=== PATIENT | female | born 1955 | race Caucasian/White ===

== ENCOUNTER 2017-02-09 12:13 | Emergency (ER) | payer OTHER ==
[2017-02-09 12:31] VITALS: RESP 18
[2017-02-09] MEDS ORDERED: SODIUM CHLORIDE 0.9% 500 ML IV STA (13:04)
--- NOTE | 2017-02-09 13:49 | CT ---
EXAMINATION TYPE: CT brain wo con DATE OF EXAM: 02/09/2017 1:44 PM COMPARISON: 11/06/2016 HISTORY: seizure CT DLP: 995.[address] of the brain was performed. The ventricles, basal cisterns and sulci overlying the cerebral convexities demonstrate mild enlargem ent. Remote lacunar infarcts identified. There is no evidence for intracranial hemorrhage or sulcal effacement. There is decreased attenuation about the periventricular white matter and deep white matter of both c erebral hemispheres, compatible with chronic small vessel ischemia. Differential diagnosis does inclu de demyelination. No mass effects are seen.No midline shift. Osseous calvarium is intact. If symptoms persist consider MRI. IMPRESSION: 1. Age related atrophic and chronic small vessel ischemic change without acute intracranial process s een at this time.
--- NOTE | 2017-02-09 13:54 | XR ---
EXAMINATION TYPE: XR chest 2V DATE OF EXAM: 02/09/2017 1:48 PM COMPARISON: 11/09/2016 HISTORY: Shortness of breath TECHNIQUE: Frontal and lateral views of the chest are obtained. FINDINGS: Scattered senescent parenchymal changes noted. Hyperinflation compatible with COPD. No evidence for infiltrate. No evidence for atelectasis. Heart size is stable. Mediastinal structures are stable and grossly unremarkable. No evidence for hilar prominence. Degenerative changes dorsal spine. IMPRESSION: 1. No evidence for acute pulmonary disease.
[2017-02-09 14:39] LABS: Basophils % (A) 1 %; CH 30.1; CHCM 33.5; Eosinophils # (A) 0.1 k/uL (0-0.7); Eosinophils % (A) 1 %; HCT 33.9 % (34.0-46.0); HDW 2.34; HGB 11.2 gm/dL (11.4-16.0); Luc # (Auto) 0.16; Luc % (Auto) 3; Lymphocytes # (A) 1.3 k/uL (1.0-4.8); Lymphocytes % (A) 27 %; MCH 29.9 pg (25.0-35.0); MCHC 33.1 g/dL (31.0-37.0); MCV 90.2 fL (80.0-100.0); Mean Platelet Volume 7.1; Monocytes # (A) 0.3 k/uL (0-1.0); Monocytes % (A) 7 %; Neutrophils % (A) 61 %; RBC 3.76 m/uL (3.80-5.40); RDW 12.8 % (11.5-15.5); WBC 4.8 k/uL (3.8-10.6); WBC (Perox) 5.24
[2017-02-09 14:50] LABS: ALT 21 U/L (9-52); AST 15 U/L (14-36); Alkaline Phosphatase 113 U/L (38-126); Anion Gap 10 mmol/L; Blood Urea Nitrogen 9 mg/dL (7-17); Calcium 8.2 mg/dL (8.4-10.2); Carbon Dioxide 23 mmol/L (22-30); Chloride 105 mmol/L (98-107); Glucose 96 mg/dL (74-99); Non-African American GFR(MDRD) >60 (>60 ml/min/1.73 sqM); Potassium 3.6 mmol/L (3.5-5.1); Sodium 138 mmol/L (137-145); Total Bilirubin 0.3 mg/dL (0.2-1.3)
--- NOTE | 2017-02-09 16:07 | ED ---
Syncope HPI - General Chief Complaint: Dizziness Stated Complaint: Weakness Time Seen by Provider: 02/09/17 12:56 Source: patient Mode of arrival: EMS Limitations: physical limitation - History of Present Illness Initial Comments: (Message on her son's cell phone this morning, message wasn't quite clear she didn't speak very clear on the phone and then she was brought to the hospital and at that point she was quite unresponsive. Her son told me she has a history of nonepileptic seizures and she also has a history of bipolar disorder as well as borderline personality and this is not the first time she had the similar episodes. Review of system is not available patient is not responding to the verbal queries - Related Data Home Medications Medication Instructions Recorded Confirmed Cyanocobalamin [Vitamin B-12] 1,000 mcg PO DAILY 11/20/14 11/09/16 DULoxetine HCL [Cymbalta] 60 mg PO BID 11/20/14 11/09/16 Estrogens, Conjugated [Premarin] 0.3 mg PO MOFR 11/20/14 11/09/16 Fluticasone Propionate [Flonase] 2 spray EA NOSTRIL BID PRN 11/20/14 11/09/16 LORazepam [Ativan] 1 mg PO TID PRN 11/20/14 11/09/16 Levothyroxine Sodium [Synthroid] 100 mcg PO QAM 11/20/14 11/09/16 Loratadine-Pseudoeph 10-240 mg 1 tab PO DAILY PRN 11/20/14 11/09/16 [Claritin-D 24 Hour] Omeprazole [PriLOSEC] 20 mg PO AC-TID 11/20/14 11/09/16 SUMAtriptan SUCCINATE [Imitrex] 100 mg PO BID PRN 11/20/14 11/09/16 Trimethobenzamide [Tigan] 300 mg PO TID PRN 11/20/14 11/09/16 carBAMazepine [TEGretol] 200 mg PO BID 11/20/14 11/09/16 traZODone HCL [Desyrel] 200 mg PO HS 11/20/14 11/09/16 Calcium Carbonate/Vitamin D3 1 tab PO BID 04/09/16 11/09/16 [Calcium 600-Vit D3 400 Tablet] Cholecalciferol [Vitamin D3] 2,000 unit PO DAILY 04/09/16 11/09/16 Lidocaine Viscous [Xylocaine 10 ml PO DAILY PRN 04/09/16 11/09/16 Viscous 2%] Zonisamide [Zonegran] 400 mg PO HS 07/16/16 11/09/16 Previous Rx's Medication Instructions Recorded HYDROcodone/APAP 5-325MG [[place] 1 - 2 each PO Q4-6H PRN #90 tab 11/13/16 5-325] Sennosides-Docusate Sodium 1 tab PO BID #60 tablet 11/13/16 [Senokot-S] Warfarin [Coumadin] 2.5 mg PO DAILY #30 tab 11/13/16 Allergies Allergy/AdvReac Type Severity Reaction Status Date / Time barium sulfate Allergy Rash/Hives Verified 02/09/17 12:22 ibuprofen [From Motrin] Allergy Unknown Verified 02/09/17 12:22 sulfamethoxazole Allergy Unknown Verified 02/09/17 12:22 [From Bactrim] trimethoprim [From Bactrim] Allergy Unknown Verified 02/09/17 12:22 atropine sulfate AdvReac STOMACH Verified 02/09/17 12:22 [From ] PAIN cyclobenzaprine HCl AdvReac NIGHTMARES Verified 02/09/17 12:22 [From Flexeril] dicyclomine HCl [From Bentyl] AdvReac STOMACH Verified 02/09/17 12:22 PAIN hyoscyamine sulfate AdvReac STOMACH Verified 02/09/17 12:22 [From ] PAIN niacin AdvReac HOT/FLUSHIN Verified 02/09/17 12:22 G NSAIDS (Non-Steroidal AdvReac stomach Verified 02/09/17 12:22 Anti-Inflamma pain phenobarbital [From ] AdvReac STOMACH Verified 11/09/16 14:56 PAIN scopolamine hydrobromide AdvReac STOMACH Verified 11/09/16 14:56 [From ] PAIN Bspujwh-Soi-Jfv Reductase AdvReac MUSCLE Verified 11/09/16 14:56 Inhibitor WEAKNESS Review of Systems ROS Statement: Those systems with pertinent positive or pertinent negative responses have been documented in the HPI. ROS Other: All systems not noted in ROS Statement are negative. Past Medical History Past Medical History: Fibromyalgia, GERD/Reflux, Seizure Disorder, Thyroid Disorder Additional Past Medical History / Comment(s): SEE DR GARCIA'S H&P,pernicious anemia, chronic pain, LAST SEIZURE-NOV 2014, MIGRAINES,acute bronchial spasms, IBS,inflammatory & toxic neuropathy,rt upper quad pain,meralgia parasthetica,TMJ History of Any Multi-Drug Resistant Organisms: None Reported Past Surgical History: Adenoidectomy, Appendectomy, Section, Cholecystectomy, Hysterectomy, Tonsillectomy, Tubal Ligation Additional Past Surgical History / Comment(s): jaw(HAS METAL IN IT) Past Anesthesia/Blood Transfusion Reactions: Motion Sickness Additional Past Anesthesia/Blood Transfusion Reaction / Comment(s): claustrophobic Past Psychological History: Anxiety, Bipolar, Depression, PTSD Additional Psychological History / Comment(s): personality disorder. STARTED SMOKING 2005 AFTER A DIVORCE,SMOKES NO MORE THAN 1/2 PPD. pt stated she recently had fallen hit head/rt arm had xray of arm at [facility] (was ok). pt stated ever since fall has had some slightconfusion. Smoking Status: Former smoker Past Alcohol Use History: None Reported Past Drug Use History: None Reported Additional Drug Use History / Comment(s): uses marijuana weekly-has medical marijuana card - Past Family History Father Family Medical History: Congestive Heart Failure (CHF), COPD, Hyperlipidemia, Hypertension Additional Family Medical History / Comment(s): at age 63 Mother Family Medical History: Renal Disease Additional Family Medical History / Comment(s): AT AGE 88- RENAL FAILURE General Exam - General Exam Comments Initial Comments: General: The patient i was sleeping and not responding to verbal inquiries l I when I went to reassess her she was awake alert GCS was 15 there were no complaints at all. Skin: Skin is warm and dry and no rashes or lesions are noted. Eye: Pupils are equal, round and reactive to light, extra-ocular movements are intact; there is normal conjunctiva bilaterally. Ears, nose, mouth and throat: There are moist mucous membranes and no oral lesions. Neck: The neck is supple, there is no tenderness or JVD. Cardiovascular: There is a regular rate and rhythm. No murmur, rub or gallop is appreciated. Respiratory: To auscultation bilateral, no wheezing no rhonchi no distress respiratory christensen noticed Gastrointestinal: Soft, non-distended, non-tender abdomen without masses or organomegaly noted. There is no rebound or guarding present. Bowel sounds are unremarkable. Back: There is no tenderness to palpation in the midline. There is no obvious deformity. Musculoskeletal: Normal ROM, no tenderness, There is no pedal edema. There is no calf tenderness or swelling. No cords were appreciated. Neurological: CN II-XII intact, Cranial nerves III through XII are intact. There are no obvious motor or sensory deficits. Coordination appears grossly intact. Speech is normal. Psychiatric: Cooperative, appropriate mood & affect, normal judgment. Limitations: physical limitation Course Vital Signs 02/09/17 02/09/17 02/09/17 12:20 14:20 15:53 Temperature 97.5 F L Pulse Rate 72 74 78 Respiratory 18 18 18 Rate Blood Pressure 133/84 147/78 149/69 O2 Sat by Pulse 95 99 97 Oximetry - Reevaluation(s) Reevaluation #1: 02/09/17 16:55 Reason was reassessed at 1650 again had a long conversation with the patient and the family she has been elevated well with the nurse seen her she wants to go home and family agrees with the. There was advised to come back if symptoms get worse EKG Findings - EKG Comments: EKG Findings:: KG is normal sinus rhythm ventricular rate is 70 CO interval is 202 QRS duration is 94 QT/QTc is 396/427, review of this EKG does not reveal any ST elevation or ST depression at all Medical Decision Making - Lab Data Result diagrams: 02/09/17 14:21 02/09/17 14:21 Lab Results 02/09/17 02/09/17 02/09/17 Range/Units 13:30 14:21 14:21 WBC 4.8 (3.8-10.6) k/uL RBC 3.76 L (3.80-5.40) m/uL Hgb 11.2 L (11.4-16.0) gm/dL Hct 33.9 L (34.0-46.0) % MCV 90.2 (80.0-100.0) fL MCH 29.9 (25.0-35.0) pg MCHC 33.1 (31.0-37.0) g/dL RDW 12.8 (11.5-15.5) % Plt Count 330 (150-450) k/uL Neutrophils % 61 % Lymphocytes % 27 % Monocytes % 7 % Eosinophils % 1 % Basophils % 1 % Neutrophils # 3.0 (1.3-7.7) k/uL Lymphocytes # 1.3 (1.0-4.8) k/uL Monocytes # 0.3 (0-1.0) k/uL Eosinophils # 0.1 (0-0.7) k/uL Basophils # 0.0 (0-0.2) k/uL Sodium (137-145) mmol/L Potassium (3.5-5.1) mmol/L Chloride (98-107) mmol/L Carbon Dioxide (22-30) mmol/L Anion Gap mmol/L BUN (7-17) mg/dL Creatinine (0.52-1.04) mg/dL Est GFR (MDRD) Af Amer (>60 ml/min/1.73 sqM) Est GFR (MDRD) Non-Af (>60 ml/min/1.73 sqM) Glucose (74-99) mg/dL Plasma Lactic Acid [place] 1.1 (0.7-2.0) mmol/L Calcium (8.4-10.2) mg/dL Total Bilirubin (0.2-1.3) mg/dL AST (14-36) U/L ALT (9-52) U/L Alkaline Phosphatase (38-126) U/L Troponin I <0.012 (0.000-0.034) ng/mL Total Protein (6.3-8.2) g/dL Albumin (3.5-5.0) g/dL Urine Opiates Screen (NotDetected) Ur Oxycodone Screen (NotDetected) Urine Methadone Screen (NotDetected) Ur Propoxyphene Screen (NotDetected) Ur Barbiturates Screen (NotDetected) U Tricyclic Antidepress (NotDetected) Ur Phencyclidine Scrn (NotDetected) Ur Amphetamines Screen (NotDetected) U Methamphetamines Scrn (NotDetected) U Benzodiazepines Scrn (NotDetected) Urine Cocaine Screen (NotDetected) U Marijuana (THC) Screen (NotDetected) 02/09/17 02/09/17 Range/Units 14:21 15:00 WBC (3.8-10.6) k/uL RBC (3.80-5.40) m/uL Hgb (11.4-16.0) gm/dL Hct (34.0-46.0) % MCV (80.0-100.0) fL MCH (25.0-35.0) pg MCHC (31.0-37.0) g/dL RDW (11.5-15.5) % Plt Count (150-450) k/uL Neutrophils % % Lymphocytes % % Monocytes % % Eosinophils % % Basophils % % Neutrophils # (1.3-7.7) k/uL Lymphocytes # (1.0-4.8) k/uL Monocytes # (0-1.0) k/uL Eosinophils # (0-0.7) k/uL Basophils # (0-0.2) k/uL Sodium 138 (137-145) mmol/L Potassium 3.6 (3.5-5.1) mmol/L Chloride 105 (98-107) mmol/L Carbon Dioxide 23 (22-30) mmol/L Anion Gap 10 mmol/L BUN 9 (7-17) mg/dL Creatinine 0.63 (0.52-1.04) mg/dL Est GFR (MDRD) Af Amer >60 (>60 ml/min/1.73 sqM) Est GFR (MDRD) Non-Af >60 (>60 ml/min/1.73 sqM) Glucose 96 (74-99) mg/dL Plasma Lactic Acid [place] (0.7-2.0) mmol/L Calcium 8.2 L (8.4-10.2) mg/dL Total Bilirubin 0.3 (0.2-1.3) mg/dL AST 15 (14-36) U/L ALT 21 (9-52) U/L Alkaline Phosphatase 113 (38-126) U/L Troponin I (0.000-0.034) ng/mL Total Protein 6.0 L (6.3-8.2) g/dL Albumin 3.2 L (3.5-5.0) g/dL Urine Opiates Screen Detected H (NotDetected) Ur Oxycodone Screen Not Detected (NotDetected) Urine Methadone Screen Not Detected (NotDetected) Ur Propoxyphene Screen Not Detected (NotDetected) Ur Barbiturates Screen Not Detected (NotDetected) U Tricyclic Antidepress Not Detected (NotDetected) Ur Phencyclidine Scrn Not Detected (NotDetected) Ur Amphetamines Screen Not Detected (NotDetected) U Methamphetamines Scrn Not Detected (NotDetected) U Benzodiazepines Scrn Detected H (NotDetected) Urine Cocaine Screen Not Detected (NotDetected) U Marijuana (THC) Screen Not Detected (NotDetected) Disposition Clinical Impression: Psychogenic nonepileptic seizure Disposition: HOME SELF-CARE Instructions: Dizziness (ED)
[2017-02-09 17:07] VITALS: BP 141/84; PULSE 86; TEMP 97.4
== END 2017-02-09 17:07 | disposition home or self-care (01) ==
LOC: EC 12:13
DX: F44.5 Conversion disorder with seizures or convulsions (principal); R42 Dizziness and giddiness; R53.1 Weakness; R91.8 Other nonspecific abnormal finding of lung field; M79.7 Fibromyalgia; F31.9 Bipolar disorder, unspecified; F41.9 Anxiety disorder, unspecified; F43.10 Post-traumatic stress disorder, unspecified; E07.9 Disorder of thyroid, unspecified; K21.9 Gastro-esophageal reflux disease without esophagitis; G40.909 Epilepsy, unspecified, not intractable, without status epilepticus; Z87.891 Personal history of nicotine dependence; Z79.899 Other long term (current) drug therapy; Z88.1 Allergy status to other antibiotic agents; Z88.6 Allergy status to analgesic agent; Z88.8 Allergy status to other drugs, medicaments and biological substances; Z86.69 Personal history of other diseases of the nervous system and sense organs
CPT/HCPCS: 36415; 70450; 71020; 80053; 80306; 83605; 84484; 85025; 93005; 99285

== ENCOUNTER 2017-07-15 14:59 | Emergency (ER) | payer OTHER ==
[2017-07-15 15:18] VITALS: BP 138/73; PULSE 86; RESP 20; TEMP 99.3
--- NOTE | 2017-07-15 15:38 | ED ---
Fall HPI - General Chief Complaint: Fall Stated Complaint: Rib Pain Time Seen by Provider: 07/15/17 15:23 Source: patient Mode of arrival: ambulatory - History of Present Illness Initial Comments: 61-year-old male patient presents to emergency department today for evaluation of left upper rib pain and left hip pain after a fall 4 days ago. Patient states she was walking up the stairs at some bags in her hand, tripped and fell hitting her left chest and hip on a staircase. Patient states she did not fall down the stairs, hit her head, or lose consciousness. Patient states that the pain seems to be getting worse rather than better. Patient states that the area over her chest is tender to touch, denies any painful breathing or shortness of breath. Patient states that she is able to ambulate and bear weight on the left leg however it does cause her pain. Patient denies any numbness or tingling to her extremities. She denies any left shoulder pain or difficulties and arm range of motion. Patient denies any headache, neck pain, back pain, chest pain, shortness of breath, cough, congestion, fever, chills, dizziness, weakness, abdominal pain, nausea, vomiting, or difficulties with bowel movements or urination. Patient states that she had been taking Tylenol 3 that she has prescribed a home however this is not helping her. - Related Data Home Medications Medication Instructions Recorded Confirmed Cyanocobalamin [Vitamin B-12] 1,000 mcg PO DAILY 11/20/14 11/09/16 DULoxetine HCL [Cymbalta] 60 mg PO BID 11/20/14 11/09/16 Estrogens, Conjugated [Premarin] 0.3 mg PO MOFR 11/20/14 11/09/16 Fluticasone Propionate [Flonase] 2 spray EA NOSTRIL BID PRN 11/20/14 11/09/16 LORazepam [Ativan] 1 mg PO TID PRN 11/20/14 11/09/16 Levothyroxine Sodium [Synthroid] 100 mcg PO QAM 11/20/14 11/09/16 Loratadine-Pseudoeph 10-240 mg 1 tab PO DAILY PRN 11/20/14 11/09/16 [Claritin-D 24 Hour] Omeprazole [PriLOSEC] 20 mg PO AC-TID 11/20/14 11/09/16 SUMAtriptan SUCCINATE [Imitrex] 100 mg PO BID PRN 11/20/14 11/09/16 Trimethobenzamide [Tigan] 300 mg PO TID PRN 11/20/14 11/09/16 carBAMazepine [TEGretol] 200 mg PO BID 11/20/14 11/09/16 traZODone HCL [Desyrel] 200 mg PO HS 11/20/14 11/09/16 Calcium Carbonate/Vitamin D3 1 tab PO BID 04/09/16 11/09/16 [Calcium 600-Vit D3 400 Tablet] Cholecalciferol [Vitamin D3] 2,000 unit PO DAILY 04/09/16 11/09/16 Lidocaine Viscous 2% [Xylocaine 10 ml PO DAILY PRN 04/09/16 11/09/16 Viscous] Zonisamide [Zonegran] 400 mg PO HS 07/16/16 11/09/16 Previous Rx's Medication Instructions Recorded HYDROcodone/APAP 5-325MG [[place] 1 - 2 each PO Q4-6H PRN #90 tab 11/13/16 5-325] Sennosides-Docusate Sodium 1 tab PO BID #60 tablet 11/13/16 [Senokot-S] Warfarin [Coumadin] 2.5 mg PO DAILY #30 tab 11/13/16 Allergies Allergy/AdvReac Type Severity Reaction Status Date / Time barium sulfate Allergy Rash/Hives Verified 07/15/17 15:18 ibuprofen [From Motrin] Allergy Unknown Verified 07/15/17 15:18 sulfamethoxazole Allergy Unknown Verified 07/15/17 15:18 [From Bactrim] trimethoprim [From Bactrim] Allergy Unknown Verified 07/15/17 15:18 atropine sulfate AdvReac STOMACH Verified 07/15/17 15:18 [From ] PAIN cyclobenzaprine HCl AdvReac NIGHTMARES Verified 07/15/17 15:18 [From Flexeril] dicyclomine HCl [From Bentyl] AdvReac STOMACH Verified 07/15/17 15:18 PAIN hyoscyamine sulfate AdvReac STOMACH Verified 07/15/17 15:18 [From ] PAIN niacin AdvReac HOT/FLUSHIN Verified 07/15/17 15:18 G NSAIDS (Non-Steroidal AdvReac stomach Verified 07/15/17 15:18 Anti-Inflamma pain phenobarbital [From ] AdvReac STOMACH Verified 07/15/17 15:18 PAIN scopolamine hydrobromide AdvReac STOMACH Verified 07/15/17 15:18 [From ] PAIN Tyqynfy-Eog-Ort Reductase AdvReac MUSCLE Verified 07/15/17 15:18 Inhibitor WEAKNESS Review of Systems ROS Statement: Those systems with pertinent positive or pertinent negative responses have been documented in the HPI. ROS Other: All systems not noted in ROS Statement are negative. Past Medical History Past Medical History: Fibromyalgia, GERD/Reflux, Seizure Disorder, Thyroid Disorder Additional Past Medical History / Comment(s): SEE DR GARCIA'S H&P,pernicious anemia, chronic pain, LAST SEIZURE-NOV 2014, MIGRAINES,acute bronchial spasms, IBS,inflammatory & toxic neuropathy,rt upper quad pain,meralgia parasthetica,TMJ History of Any Multi-Drug Resistant Organisms: None Reported Past Surgical History: Adenoidectomy, Appendectomy, Section, Cholecystectomy, Hysterectomy, Tonsillectomy, Tubal Ligation Additional Past Surgical History / Comment(s): jaw(HAS METAL IN IT) Past Anesthesia/Blood Transfusion Reactions: Motion Sickness Additional Past Anesthesia/Blood Transfusion Reaction / Comment(s): claustrophobic Past Psychological History: Anxiety, Bipolar, Depression, PTSD Smoking Status: Former smoker Past Alcohol Use History: None Reported Past Drug Use History: None Reported - Past Family History Father Family Medical History: Congestive Heart Failure (CHF), COPD, Hyperlipidemia, Hypertension Additional Family Medical History / Comment(s): at age 63 Mother Family Medical History: Renal Disease Additional Family Medical History / Comment(s): AT AGE 88- RENAL FAILURE General Exam Limitations: no limitations General appearance: alert, in no apparent distress Head exam: Present: atraumatic, normocephalic, normal inspection Eye exam: Present: normal appearance, PERRL, EOMI. Absent: scleral icterus, conjunctival injection, periorbital swelling ENT exam: Present: normal exam, normal oropharynx, mucous membranes moist Neck exam: Present: normal inspection, full ROM, other (Nontender, no step-off, no deformity to firm midline palpation of the posterior cervical spine. Full range of motion without pain or limitation.). Absent: tenderness, meningismus, lymphadenopathy Respiratory exam: Present: normal lung sounds bilaterally, chest wall tenderness (Left upper chest wall tenderness). Absent: respiratory distress, wheezes, rales, rhonchi, stridor Cardiovascular Exam: Present: regular rate, normal rhythm, normal heart sounds. Absent: systolic murmur, diastolic murmur, rubs, gallop, clicks GI/Abdominal exam: Present: soft, normal bowel sounds. Absent: distended, tenderness, guarding, rebound, rigid Extremities exam: Present: normal inspection, full ROM, tenderness (Tenderness over the left lateral hip), normal capillary refill, other (Small area of left anterior thigh ecchymosis). Absent: pedal edema, joint swelling, calf tenderness Back exam: Present: normal inspection, CVA tenderness (R), CVA tenderness (L), other (Nontender, no step-off, no deformity to firm midline palpation of the thoracic and lumbar vertebrae. Full range of motion without pain or limitation.) Neurological exam: Present: alert, oriented X3, CN II-XII intact Psychiatric exam: Present: normal affect, normal mood Skin exam: Present: warm, dry, intact, normal color. Absent: rash Course Vital Signs 07/15/17 15:15 Temperature 99.3 F Pulse Rate 86 Respiratory 20 Rate Blood Pressure 138/73 O2 Sat by Pulse 98 Oximetry Medical Decision Making - Medical Decision Making 61 year-old female patient presented for evaluation of left upper chest wall pain and left hip pain after a fall 4 days ago. Physical exam was unremarkable , she did have some reproducible left upper chest wall pain. X-ray was obtained of the left ribs and a PA chest showed no acute cardiopulmonary process and no acute rib fractures. Left hip x-ray was negative for any acute osseous abnormalities. Patient will be discharged to take her home pain medications, rest, apply ice. She was instructed to follow-up with her primary care physician for recheck in 1-2 days. Instructed to return here immediately for any new, worsening, or concerning symptoms. Patient verbalizes understanding and agreement with this plan. 07/15/17 15:36 EKG obtained at 1531 reveals normal sinus rhythm with a ventricular rate of 73, OH interval 196, QRS duration 90, QT 382, QTC 420. No evidence of ST elevation or depression. - Radiology Data Radiology results: report reviewed, image reviewed Single AP view of the pelvis and 2 views of the left hip are obtained and showed no acute fracture or dislocation evident in the pelvis. The sacroiliac joints appear symmetric and unremarkable. Surgical clips overlie the right lower abdomen. Inferior to this there are multiple oval densities could reflect nonabsorbable pills in the cecum. Pubic symphysis is intact. Two-view of the left hip showed no acute fracture or dislocation. Hardware from the left hip prosthesis is now present. Some heterotopic ossification along the lateral margin of the metallic neck component is noted. The overlying soft tissues unremarkable. Impression by Dr. Underwood shows no acute fracture or dislocation the pelvis or left hip. Single frontal view of the chest with left rib x-rays noted shows no focal airspace opacity, pleural effusion, or pneumothorax. The cardiac silhouette size is within normal limits. The osseous structures are intact. No displaced rib fracture is seen. Tortuosity of the thoracic aorta is noted as well as degenerative changes of the thoracic spine. Impression by Dr. Dey shows no acute cardio primary process or displaced rib fracture. Disposition Clinical Impression: Chest wall contusion, Left hip pain Disposition: HOME SELF-CARE Condition: Good Instructions: Fall Prevention for Older Adults (ED), Contusion in Adults (ED) Additional Instructions: Rest, ice to the painful areas. Continue home pain medications as directed. Follow up with her primary care physician for recheck in 1-2 days. Return here immediately for any new, worsening, or concerning symptoms. Referrals: Flora Christianson MD [Primary Care Provider] - 1-2 days Time of Disposition: 16:19
--- NOTE | 2017-07-15 16:04 | XR ---
EXAMINATION TYPE: XR Hip LT and AP Pelvis DATE OF EXAM: 07/15/2017 COMPARISON: Pelvic and left hip x-ray October 10, 2016 HISTORY: Fall injury with pelvic and left hip pain. TECHNIQUE: A single AP view of the pelvis is obtained. Two views of the left hip are obtained. FINDINGS: There is no acute fracture/dislocation evident in the pelvis. The sacroiliac joints appea r symmetric and unremarkable. Surgical clips overlie the right lower quadrant. Inferior to this there are multiple oval densities could reflect nonabsorbed pills in the cecum. Pubic symphysis is intact . Two views of left hip show no acute fracture or dislocation. Metallic hardware from left hip prosthes is is now present. Some heterotopic ossification along lateral margin of metallic neck component is n oted. The overlying soft tissue is unremarkable. IMPRESSION: There is no acute fracture or dislocation in the pelvis or left hip.
--- NOTE | 2017-07-15 16:07 | XR ---
EXAMINATION TYPE: XR ribs LT w pa chest xray DATE OF EXAM: 07/15/2017 CLINICAL HISTORY: Fall and left rib pain. TECHNIQUE: Single frontal view of the chest is obtained. COMPARISON: None FINDINGS: There is no focal air space opacity, pleural effusion, or pneumothorax seen. The cardiac silhouette size is within normal limits. The osseous structures are intact. No displaced rib fractu re is seen. Tortuosity of the thoracic aorta is noted as well as degenerative changes of the thoracic spine. IMPRESSION: No acute cardiopulmonary process process or displaced rib fracture.
== END 2017-07-15 16:25 | disposition home or self-care (01) ==
LOC: EC 14:59
DX: S20.212A Contusion of left front wall of thorax, initial encounter (principal); S70.12XA Contusion of left thigh, initial encounter; M25.552 Pain in left hip; E07.9 Disorder of thyroid, unspecified; M79.7 Fibromyalgia; K21.9 Gastro-esophageal reflux disease without esophagitis; G40.909 Epilepsy, unspecified, not intractable, without status epilepticus; F31.9 Bipolar disorder, unspecified; F43.10 Post-traumatic stress disorder, unspecified; Z88.1 Allergy status to other antibiotic agents; Z88.2 Allergy status to sulfonamides; Z88.6 Allergy status to analgesic agent; Z88.8 Allergy status to other drugs, medicaments and biological substances; Z79.899 Other long term (current) drug therapy; Z87.891 Personal history of nicotine dependence; W10.8XXA Fall (on) (from) other stairs and steps, initial encounter; Y93.01 Activity, walking, marching and hiking; Y92.009 Unspecified place in unspecified non-institutional (private) residence as the place of occurrence of the external cause
CPT/HCPCS: 73502; 93005; 99283

== ENCOUNTER 2017-09-08 16:05 | Emergency (ER) | payer OTHER ==
[2017-09-08 16:11] VITALS: RESP 18
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
[2017-09-08 16:52] LABS: Basophils # (A) 0.1 k/uL (0-0.2); Basophils % (A) 1 %; CH 30.4; CHCM 33.8; Eosinophils # (A) 0.1 k/uL (0-0.7); Eosinophils % (A) 1 %; HCT 37.1 % (34.0-46.0); HDW 2.19; HGB 12.1 gm/dL (11.4-16.0); Luc # (Auto) 0.13; Luc % (Auto) 3; Lymphocytes % (A) 41 %; MCH 29.4 pg (25.0-35.0); MCHC 32.5 g/dL (31.0-37.0); MCV 90.4 fL (80.0-100.0); Monocytes # (A) 0.4 k/uL (0-1.0); Monocytes % (A) 8 %; Neutrophils # (A) 2.3 k/uL (1.3-7.7); Neutrophils % (A) 46 %; RDW 13.1 % (11.5-15.5); WBC 4.9 k/uL (3.8-10.6); WBC (Perox) 5.24
[2017-09-08 17:01] LABS: ALT 19 U/L (9-52); AST 14 U/L (14-36); Alkaline Phosphatase 124 U/L (38-126); Anion Gap 11 mmol/L; Blood Urea Nitrogen 12 mg/dL (7-17); Calcium 8.3 mg/dL (8.4-10.2); Carbon Dioxide 22 mmol/L (22-30); Chloride 102 mmol/L (98-107); Glucose 100 mg/dL (74-99); Non-African American GFR(MDRD) >60 (>60 ml/min/1.73 sqM); Potassium 4.2 mmol/L (3.5-5.1); Sodium 135 mmol/L (137-145); Total Bilirubin 0.2 mg/dL (0.2-1.3); Total Protein 6.3 g/dL (6.3-8.2)
--- NOTE | 2017-09-08 17:13 | CT ---
EXAMINATION TYPE: CT brain jaelyn newman DATE OF EXAM: 09/08/2017 COMPARISON: 11/06/2016 HISTORY: VIRAMONTES and neck pain after fall injury x1 week ago. CT DLP: 1204.9 mGycm Automated exposure control for dose reduction was used. TECHNIQUE: CT scan of the head and cervical spine are performed without contrast. FINDINGS: There is 1 cm hypodensity in the anterior right internal capsule. There is similar 7 mm h ypodensity in anterior left internal capsule. There is no mass effect nor midline shift. There is no sign of intracranial hemorrhage. The calvarium is intact. Cervical vertebra have fairly normal alignment. There is mild spurring of the endplates from C4 to C7 . There is mild multilevel hypertrophic facet arthropathy. Skull base is intact. I see no fracture. 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 No acute intracranial abnormality. Mild spondylotic changes in the cervical spine. No change compared to old exams.
--- NOTE | 2017-09-08 17:20 | XR ---
EXAMINATION TYPE: XR lumbar spine 2 or 3V DATE OF EXAM: 09/08/2017 COMPARISON: NONE HISTORY: Left hip pain and back pain TECHNIQUE: 3 views FINDINGS: Lumbar vertebra have fairly normal alignment. Disc spaces appear normal for age. Posterior elements are intact. There is osteopenia. I see no compression fracture. Sacroiliac joints are intact . IMPRESSION: No acute abnormality of the lumbar spine. There is probably osteopenia.
--- NOTE | 2017-09-08 17:24 | XR ---
EXAMINATION TYPE: XR Hip LT and AP Pelvis DATE OF EXAM: 09/08/2017 COMPARISON: 07/15/2017 HISTORY: Pain TECHNIQUE: 3 views FINDINGS: The pelvic ring is intact. There is left hip prosthesis. I see no fracture nor dislocation. Sacroilia c joints are intact. CONCLUSION: No acute abnormality of the pelvis and left hip. No change.
[2017-09-08 17:46] LABS: Appearance,Urine Cloudy (Clear); Bacteria,Urine Rare /hpf; Bilirubin,Urine Negative (Negative); Glucose,Urine (UA) Negative (Negative); Ketones,Urine Negative (Negative); Leukocyte Esterase,Urine Small (Negative); Mucus,Urine Rare /hpf; Nitrite,Urine Negative (Negative); PH, Urine 6.5 (5.0-8.0); Particle Count 2502; Protein,Urine Trace (Negative); RBC,Urine 1 /hpf (0-5); Specific Gravity,Urine 1.024 (1.001-1.035); Squamous Epithelial Cell,Urine 2 /hpf (0-4); UA Billing (MACRO vs. MICRO) MICRO; WBC,Urine 2 /hpf (0-5)
[2017-09-08 17:55] VITALS: BP 119/75; PULSE 71; TEMP 98
== END 2017-09-08 19:05 | disposition home or self-care (01) ==
LOC: EC 16:05
DX: S06.0X0A Concussion without loss of consciousness, initial encounter (principal); S70.02XA Contusion of left hip, initial encounter; S39.012A Strain of muscle, fascia and tendon of lower back, initial encounter; M79.7 Fibromyalgia; K21.9 Gastro-esophageal reflux disease without esophagitis; G40.909 Epilepsy, unspecified, not intractable, without status epilepticus; E07.9 Disorder of thyroid, unspecified; F41.9 Anxiety disorder, unspecified; F32.9 Major depressive disorder, single episode, unspecified; F43.10 Post-traumatic stress disorder, unspecified; Z79.51 Long term (current) use of inhaled steroids; Z79.899 Other long term (current) drug therapy; Z88.2 Allergy status to sulfonamides; Z88.6 Allergy status to analgesic agent; Z88.8 Allergy status to other drugs, medicaments and biological substances; Z87.891 Personal history of nicotine dependence; W01.10XA Fall on same level from slipping, tripping and stumbling with subsequent striking against unspecified object, initial encounter; Y92.521 Bus station as the place of occurrence of the external cause
CPT/HCPCS: 36415; 70450; 72100; 72125; 73502; 80053; 80306; 81001; 85025; 99284

== ENCOUNTER 2017-11-18 10:31 | Emergency (ER) | payer OTHER ==
--- NOTE | 2017-11-18 10:48 | ED ---
General Adult HPI - General Chief complaint: Fall Stated complaint: Fall Time Seen by Provider: 11/18/17 10:33 Source: patient, EMS, RN notes reviewed Mode of arrival: EMS Limitations: no limitations - History of Present Illness Initial comments: Patient is a 62-year-old female who presents emergency room today by EMS, with a chief complaint fall that occurred just prior to arrival. Patient does admit that she has a history of seizures. She states she felt a little funny when she was standing. She states she usually has a walker but was not close to her so she was trying to get herself to sit down and lost her balance falling forward hitting her head. She states that she did feel little dazed but did not have a loss consciousness that she is aware of. Patient states that she does have a mild headache. Mild neck pain. Does have pain to the left hip. Denies any other complaints or symptoms. Patient denies any recent fever, chills , shortness of breath, chest pain, back pain, abdominal pain, nausea or vomiting , numbness or tingling, dysuria or hematuria, constipation or diarrhea, visual changes, or any other complaints. - Related Data Home Medications Medication Instructions Recorded Confirmed Cyanocobalamin [Vitamin B-12] 1,000 mcg PO DAILY 11/20/14 11/18/17 DULoxetine HCL [Cymbalta] 60 mg PO BID 11/20/14 11/18/17 Estrogens, Conjugated [Premarin] 0.3 mg PO MOFR 11/20/14 11/18/17 Fluticasone Propionate [Flonase] 1 spray EA NOSTRIL DAILY 11/20/14 11/18/17 LORazepam [Ativan] 1 mg PO TID PRN 11/20/14 11/18/17 Levothyroxine Sodium [Synthroid] 100 mcg PO QAM 11/20/14 11/18/17 Loratadine-Pseudoeph 10-240 mg 1 tab PO DAILY PRN 11/20/14 11/18/17 [Claritin-D 24 Hour] Omeprazole [PriLOSEC] 20 mg PO AC-BID 11/20/14 11/18/17 SUMAtriptan SUCCINATE [Imitrex] 100 mg PO BID PRN 11/20/14 11/18/17 Trimethobenzamide [Tigan] 300 mg PO TID PRN 11/20/14 11/18/17 carBAMazepine [TEGretol] 400 mg PO QAM 11/20/14 11/18/17 traZODone HCL [Desyrel] 100 mg PO HS 11/20/14 11/18/17 Cholecalciferol [Vitamin D3] 2,000 unit PO DAILY 04/09/16 11/18/17 Zonisamide [Zonegran] 600 mg PO HS 07/16/16 11/18/17 Acetaminophen Tab [Tylenol Tab] 500 mg PO Q6HR PRN MDD 3000mg 09/08/17 11/18/17 Acetaminophen-Codeine 300-30mg 1 tab PO Q6H PRN 09/08/17 11/18/17 [Tylenol #3] Calcium/Magnesium/Zinc 1 tab PO DAILY 09/08/17 11/18/17 [Smataxs-Xnwsgmliz-Suxk Tablet] Calcium/Vitamin D 500/500 1 tab PO BID 09/08/17 11/18/17 Docusate [Colace] 100 mg PO BID 09/08/17 11/18/17 Methocarbamol [Robaxin] 500 mg PO TID PRN 09/08/17 11/18/17 carBAMazepine [TEGretol] 600 mg PO HS 09/08/17 11/18/17 diphenhydrAMINE HCL [Benadryl] 25 mg PO HS PRN 09/08/17 11/18/17 Cannabidiol 25mg 25 mg PO HS 11/18/17 11/18/17 Chlorhexidine Gluconate [Peridex] 15 ml PO DAILY 11/18/17 11/18/17 Lidocaine Viscous 2% [Xylocaine 10 ml MUCOUS MEM DAILY PRN 11/18/17 11/18/17 Viscous] Previous Rx's Medication Instructions Recorded Cephalexin [Keflex] 500 mg PO Q12HR 7 Days cap 11/18/17 Allergies Allergy/AdvReac Type Severity Reaction Status Date / Time barium sulfate Allergy Rash/Hives Verified 11/18/17 10:53 ibuprofen [From Motrin] Allergy Unknown Verified 11/18/17 10:53 sulfamethoxazole Allergy Unknown Verified 11/18/17 10:53 [From Bactrim] trimethoprim [From Bactrim] Allergy Unknown Verified 11/18/17 10:53 atropine sulfate AdvReac STOMACH Verified 11/18/17 10:53 [From ] PAIN cyclobenzaprine HCl AdvReac NIGHTMARES Verified 11/18/17 10:53 [From Flexeril] dicyclomine HCl [From Bentyl] AdvReac STOMACH Verified 11/18/17 10:53 PAIN hyoscyamine sulfate AdvReac STOMACH Verified 11/18/17 10:53 [From ] PAIN niacin AdvReac HOT/FLUSHIN Verified 11/18/17 10:53 G NSAIDS (Non-Steroidal AdvReac stomach Verified 11/18/17 10:53 Anti-Inflamma pain phenobarbital [From ] AdvReac STOMACH Verified 11/18/17 10:53 PAIN scopolamine hydrobromide AdvReac STOMACH Verified 11/18/17 10:53 [From ] PAIN Jxafwiw-Jik-Noe Reductase AdvReac MUSCLE Verified 11/18/17 10:53 Inhibitor WEAKNESS Review of Systems ROS Statement: Those systems with pertinent positive or pertinent negative responses have been documented in the HPI. ROS Other: All systems not noted in ROS Statement are negative. Past Medical History Past Medical History: Fibromyalgia, GERD/Reflux, Seizure Disorder, Thyroid Disorder Additional Past Medical History / Comment(s): SEE DR GARCIA'S H&P,pernicious anemia, chronic pain, LAST SEIZURE-NOV 2014, MIGRAINES,acute bronchial spasms, IBS,inflammatory & toxic neuropathy,rt upper quad pain,meralgia parasthetica,TMJ History of Any Multi-Drug Resistant Organisms: None Reported Past Surgical History: Adenoidectomy, Appendectomy, Section, Cholecystectomy, Hysterectomy, Tonsillectomy, Tubal Ligation Additional Past Surgical History / Comment(s): jaw(HAS METAL IN IT) Past Anesthesia/Blood Transfusion Reactions: Motion Sickness Additional Past Anesthesia/Blood Transfusion Reaction / Comment(s): claustrophobic Past Psychological History: Anxiety, Bipolar, Depression, PTSD Smoking Status: Former smoker Past Alcohol Use History: None Reported Past Drug Use History: None Reported - Past Family History Father Family Medical History: Congestive Heart Failure (CHF), COPD, Hyperlipidemia, Hypertension Additional Family Medical History / Comment(s): at age 63 Mother Family Medical History: Renal Disease Additional Family Medical History / Comment(s): AT AGE 88- RENAL FAILURE General Exam - General Exam Comments Initial Comments: General: The patient is awake and alert, in no distress, and does not appear acutely ill. Eye: Pupils are equal, round and reactive to light, extra-ocular movements are intact. No nystagmus. There is normal conjunctiva bilaterally. No signs of icterus. Ears, nose, mouth and throat: There are moist mucous membranes and no oral lesions. Neck: The neck is supple, there is no tenderness or JVD. Cardiovascular: There is a regular rate and rhythm. No murmur, rub or gallop is appreciated. Respiratory: Lungs are clear to auscultation, respirations are non-labored, breath sounds are equal. No wheezes, stridor, rales, or rhonchi. Gastrointestinal: Soft, non-distended, non-tender abdomen without masses or organomegaly noted. There is no rebound or guarding present. No CVA tenderness. Bowel sounds are unremarkable. Musculoskeletal: Patient does have normal appearance of left hip. Does have tenderness over the lateral aspect. Tenderness with a logroll maneuver. Sensation intact. Pulses equal bilaterally 2+. Neurological: A&O x 3. CN II-XII intact, There are no obvious motor or sensory deficits. Coordination appears grossly intact. Speech is normal. Skin: Skin is warm and dry and no rashes or lesions are noted. Psychiatric: Cooperative, appropriate mood & affect, normal judgment. Limitations: no limitations Course Vital Signs 11/18/17 11/18/17 10:33 13:44 Temperature 97.6 F 97.1 F L Pulse Rate 67 71 Respiratory 18 18 Rate Blood Pressure 153/71 158/70 O2 Sat by Pulse 99 99 Oximetry Procedures - Procedures Initial comment: 9 cm linear laceration running vertically beginning at The forehead going up to the scalp. Laceration site was anesthetized with 1% lidocaine with epinephrine. Muscular where was approximated and sutured with a total of 5 4-0 Vicryl. Beginning of laceration to the forehead was closed with 5-0 nylon. A total of 12 sutures placed. The portion of laceration up into the scalp in the hairline was closed and approximated with zan. A total of 17 zan placed. Medical Decision Making - Medical Decision Making Case discussed in detail with attending physician Dr. Bonds. Patient's labs been reviewed are unremarkable. Her CT is negative for any acute abnormalities. X-ray also negative for any fracture dislocation. Results were discussed with the patient. Patient reexamined at this time shows no signs of distress. She's been up moving around. The emergency room was feeling well. Patient's advised to leave sutures in place for the next 7 days. [place] in for 10 days. Advised return here to the emergency room. We'll broaden a prescription for antibiotic to cover for any infection. Advised to return to emergency room if there is any increased headache or any increased worsening symptoms. States understanding and is in agreement. - Lab Data Result diagrams: 11/18/17 11:14 11/18/17 11:14 Lab Results 11/18/17 11/18/17 11/18/17 Range/Units 10:35 11:14 11:14 WBC 6.4 (3.8-10.6) k/uL RBC 3.85 (3.80-5.40) m/uL Hgb 11.4 (11.4-16.0) gm/dL Hct 36.2 (34.0-46.0) % MCV 94.1 (80.0-100.0) fL MCH 29.7 (25.0-35.0) pg MCHC 31.6 (31.0-37.0) g/dL RDW 14.0 (11.5-15.5) % Plt Count 383 (150-450) k/uL Neutrophils % 71 % Lymphocytes % 18 % Monocytes % 6 % Eosinophils % 2 % Basophils % 1 % Neutrophils # 4.5 (1.3-7.7) k/uL Lymphocytes # 1.1 (1.0-4.8) k/uL Monocytes # 0.4 (0-1.0) k/uL Eosinophils # 0.1 (0-0.7) k/uL Basophils # 0.1 (0-0.2) k/uL PT (9.0-12.0) sec INR (<1.2) APTT (22.0-30.0) sec Sodium (137-145) mmol/L Potassium (3.5-5.1) mmol/L Chloride (98-107) mmol/L Carbon Dioxide (22-30) mmol/L Anion Gap mmol/L BUN (7-17) mg/dL Creatinine (0.52-1.04) mg/dL Est GFR (MDRD) Af Amer (>60 ml/min/1.73 sqM) Est GFR (MDRD) Non-Af (>60 ml/min/1.73 sqM) Glucose (74-99) mg/dL POC Glucose (mg/dL) 115 H (75-99) mg/dL POC Glu [employer] Liana Read Calcium (8.4-10.2) mg/dL Total Bilirubin (0.2-1.3) mg/dL AST (14-36) U/L ALT (9-52) U/L Alkaline Phosphatase (38-126) U/L Total Creatine Kinase 43 (30-135) U/L CK-MB (CK-2) 0.5 (0.0-2.4) ng/mL CK-MB (CK-2) Rel Index 1.2 Troponin I <0.012 (0.000-0.034) ng/mL Total Protein (6.3-8.2) g/dL Albumin (3.5-5.0) g/dL 11/18/17 11/18/17 Range/Units 11:14 11:14 WBC (3.8-10.6) k/uL RBC (3.80-5.40) m/uL Hgb (11.4-16.0) gm/dL Hct (34.0-46.0) % MCV (80.0-100.0) fL MCH (25.0-35.0) pg MCHC (31.0-37.0) g/dL RDW (11.5-15.5) % Plt Count (150-450) k/uL Neutrophils % % Lymphocytes % % Monocytes % % Eosinophils % % Basophils % % Neutrophils # (1.3-7.7) k/uL Lymphocytes # (1.0-4.8) k/uL Monocytes # (0-1.0) k/uL Eosinophils # (0-0.7) k/uL Basophils # (0-0.2) k/uL PT 9.9 (9.0-12.0) sec INR 1.0 (<1.2) APTT 26.1 (22.0-30.0) sec Sodium 140 (137-145) mmol/L Potassium 4.2 (3.5-5.1) mmol/L Chloride 106 (98-107) mmol/L Carbon Dioxide 26 (22-30) mmol/L Anion Gap 8 mmol/L BUN 9 (7-17) mg/dL Creatinine 0.70 (0.52-1.04) mg/dL Est GFR (MDRD) Af Amer >60 (>60 ml/min/1.73 sqM) Est GFR (MDRD) Non-Af >60 (>60 ml/min/1.73 sqM) Glucose 101 H (74-99) mg/dL POC Glucose (mg/dL) (75-99) mg/dL POC Glu [employer]r ID Calcium 8.9 (8.4-10.2) mg/dL Total Bilirubin 0.2 (0.2-1.3) mg/dL AST 15 (14-36) U/L ALT 25 (9-52) U/L Alkaline Phosphatase 88 (38-126) U/L Total Creatine Kinase (30-135) U/L CK-MB (CK-2) (0.0-2.4) ng/mL CK-MB (CK-2) Rel Index Troponin I (0.000-0.034) ng/mL Total Protein 6.0 L (6.3-8.2) g/dL Albumin 3.5 (3.5-5.0) g/dL Disposition Clinical Impression: Fall, Facial laceration Disposition: HOME SELF-CARE Condition: Good Instructions: Laceration (ED) Additional Instructions: Please return to the emergency room in 7 days to have sutures removed. Please return to emergency room in 10 days to have zan removed. Please watch for any signs of infection which may include increased pain, swelling, redness, fever or chills. Please follow-up with family doctor in the next 2 days of symptoms have not improved. Please return to emergency room if the symptoms increase or worsen or for any other concerns. Prescriptions: Cephalexin [Keflex] 500 mg PO Q12HR 7 Days cap Referrals: Helen Caba MD [Primary Care Provider] - 1-2 days Time of Disposition: 14:06
[2017-11-18 10:50] LABS: Glucose,Whole Blood 115 mg/dL (75-99)
[2017-11-18 11:29] LABS: Basophils # (A) 0.1 k/uL (0-0.2); Basophils % (A) 1 %; Eosinophils # (A) 0.1 k/uL (0-0.7); Eosinophils % (A) 2 %; HCT 36.2 % (34.0-46.0); HGB 11.4 gm/dL (11.4-16.0); Lymphocytes # (A) 1.1 k/uL (1.0-4.8); Lymphocytes % (A) 18 %; MCH 29.7 pg (25.0-35.0); MCHC 31.6 g/dL (31.0-37.0); MCV 94.1 fL (80.0-100.0); Mean Platelet Volume 6.9; Monocytes # (A) 0.4 k/uL (0-1.0); Monocytes % (A) 6 %; Neutrophils # (A) 4.5 k/uL (1.3-7.7); Neutrophils % (A) 71 %; Platelet Count 383 k/uL (150-450); RBC 3.85 m/uL (3.80-5.40); WBC 6.4 k/uL (3.8-10.6)
[2017-11-18 11:38] LABS: ALT 25 U/L (9-52); AST 15 U/L (14-36); Albumin 3.5 g/dL (3.5-5.0); Alkaline Phosphatase 88 U/L (38-126); Anion Gap 8 mmol/L; Blood Urea Nitrogen 9 mg/dL (7-17); Calcium 8.9 mg/dL (8.4-10.2); Carbon Dioxide 26 mmol/L (22-30); Chloride 106 mmol/L (98-107); Glucose 101 mg/dL (74-99); Potassium 4.2 mmol/L (3.5-5.1); Sodium 140 mmol/L (137-145); Total Bilirubin 0.2 mg/dL (0.2-1.3)
[2017-11-18 11:46] LABS: Creatine Kinase 43 U/L (30-135)
--- NOTE | 2017-11-18 11:54 | CT ---
EXAMINATION TYPE: CT brain jaelyn wo con DATE OF EXAM: 11/18/2017 COMPARISON: 09/14/2017 HISTORY: Fall CT DLP: 1304.9 mGycm, Automated exposure control for dose reduction was used. CONTRAST: None CT of the brain is performed utilizing 3 mm thick sections through the posterior fossa and 3 mm thick sections through the remaining calvarium. Study is performed within 24 hours of arrival to the hospital. No abnormal hyperdensity is present to suggest an acute intracranial hemorrhage. No mass lesion is evident. No acute infarcts are evident. There is some periventricular white matter hypodensity, likely on the basis of chronic white matter ischemic changes. There are couple of hypodensities within the anterio r left and mid anterior right basal ganglion. Findings can be related to old lacunar infarcts. These were present on the comparison study. Ventricles and sulci are appropriate for the patient age. Soft tissue swelling is over the left frontal region. No underlying fractures evident. There is a lar ge scalp laceration at that location. Paranasal sinuses and mastoid air cells within the [id number] are clear. Right frontal sinus is ap lastic. IMPRESSIONS: 1. Mild chronic appearing periventricular white matter ischemic changes. 2. Old lacunar infarcts bilateral basal ganglion. CT cervical spine. COMPARISON: None CT of the cervical spine is performed in the axial plane at 2 mm thick sections. Reconstructed image s in the coronal, and sagittal plane are reviewed on the computer. No acute fractures are evident. Vertebral body alignment is normal. Mild degenerative disc changes present C5-6 C6-7. Vertebral body heights are preserved. No spinal canal stenosis is evident. No neural foraminal stenosis is evident. IMPRESSIONS: 1. Mild degenerative disc changes mid to lower cervical spine.
--- NOTE | 2017-11-18 11:56 | XR ---
EXAMINATION TYPE: XR Hip LT and AP Pelvis DATE OF EXAM: 11/18/2017 COMPARISON: 07/15/2017 HISTORY: Pain TECHNIQUE: A single AP view of the pelvis is obtained. Two views of the left hip are obtained. FINDINGS: There is no acute fracture/dislocation evident in the pelvis. The sacroiliac joints appear symmetric and unremarkable. Surgical clips overlie the right lower quadrant. Arthropathy of the righ t noted with diffuse osteopenia. Calcification pelvis is Two views of left hip show no acute fracture or dislocation. Metallic hardware from left hip prosthes is is now present. Some heterotopic ossification along lateral margin of metallic neck component is n oted. The overlying soft tissue is unremarkable. IMPRESSION: 1. No acute fracture.
[2017-11-18 11:59] LABS: Creatine Kinase MB 0.5 ng/mL (0.0-2.4); Troponin I <0.012 ng/mL (0.000-0.034)
[2017-11-18] MEDS ORDERED: MORPHINE SULFATE 5 MG/ML SYRINGE IVP STA (12:07)
[2017-11-18] MEDS ORDERED: ONDANSETRON 4 MG/2 ML VIAL IVP STA (12:07)
[2017-11-18 12:10] LABS: Partial Thromboplastin Time 26.1 sec (22.0-30.0); Prothrombin Time 9.9 sec (9.0-12.0)
[2017-11-18 23:24] VITALS: BP 158/70; PULSE 71; RESP 18; TEMP 97.1
== END 2017-11-18 14:32 | disposition home or self-care (01) ==
LOC: EC 10:31
DX: S01.81XA Laceration without foreign body of other part of head, initial encounter (principal); G40.909 Epilepsy, unspecified, not intractable, without status epilepticus; M79.7 Fibromyalgia; E07.9 Disorder of thyroid, unspecified; K21.9 Gastro-esophageal reflux disease without esophagitis; M25.552 Pain in left hip; M54.2 Cervicalgia; K58.9 Irritable bowel syndrome, unspecified; G62.9 Polyneuropathy, unspecified; F41.9 Anxiety disorder, unspecified; F31.9 Bipolar disorder, unspecified; F43.10 Post-traumatic stress disorder, unspecified; Z87.891 Personal history of nicotine dependence; Z79.51 Long term (current) use of inhaled steroids; Z79.899 Other long term (current) drug therapy; Z88.1 Allergy status to other antibiotic agents; Z88.2 Allergy status to sulfonamides; Z88.6 Allergy status to analgesic agent; Z88.8 Allergy status to other drugs, medicaments and biological substances; Z91.048 Other nonmedicinal substance allergy status; W01.198A Fall on same level from slipping, tripping and stumbling with subsequent striking against other object, initial encounter; Y92.009 Unspecified place in unspecified non-institutional (private) residence as the place of occurrence of the external cause
CPT/HCPCS: 36415; 93005; 80053; 82550; 82553; 84484; 85025; 85610; 85730; 73502; 72125; 70450; 99285; 12015; 96374; 96375; J2405; J2274

== ENCOUNTER 2018-07-05 16:00 | Inpatient (IN) | payer OTHER ==
[2018-07-05] MEDS ORDERED: SODIUM CHLORIDE 0.9% 500 ML IV STA (16:15)
[2018-07-05] MEDS ORDERED: SODIUM CHLORIDE 0.9% 1,000 ML IV STA (16:15)
--- NOTE | 2018-07-05 16:20 | ED ---
Syncope HPI - General Stated Complaint: syncope Time Seen by Provider: 07/05/18 16:00 Source: patient, RN notes reviewed - History of Present Illness Initial Comments: This is a 62-year-old female was brought in by EMS to 2 syncopal episodes just prior to admission. Per EMS she was sitting down and both happen both lasting less than 1 minute. Patient states she may have been getting up from the bathroom when this occurred. She denies any head neck or back pain she states she did feel as she was in the past without she also states that she's not been feeling well for the past week she's felt cold. No nausea no vomiting or diarrhea. No dysuria no hematuria. An Accu-Chek of 137 per paramedics. Initial blood pressure upon arrival 97/56. Patient is awake and alert but lethargic. MD Complaint: loss of consciousness - Related Data Home Medications Medication Instructions Recorded Confirmed Cyanocobalamin [Vitamin B-12] 1,000 mcg PO DAILY 11/20/14 07/05/18 DULoxetine HCL [Cymbalta] 60 mg PO BID 11/20/14 07/05/18 Estrogens, Conjugated [Premarin] 0.3 mg PO MOFR 11/20/14 07/05/18 Fluticasone Propionate [Flonase] 1 spray EA NOSTRIL DAILY PRN 11/20/14 07/05/18 LORazepam [Ativan] 1 mg PO TID PRN 11/20/14 07/05/18 Levothyroxine Sodium [Synthroid] 100 mcg PO QAM 11/20/14 07/05/18 Omeprazole [PriLOSEC] 20 mg PO AC-BID 11/20/14 07/05/18 SUMAtriptan SUCCINATE [Imitrex] 100 mg PO BID PRN 11/20/14 07/05/18 Trimethobenzamide [Tigan] 300 mg PO TID PRN 11/20/14 07/05/18 carBAMazepine [TEGretol] 400 mg PO QAM 11/20/14 07/05/18 Cholecalciferol [Vitamin D3] 2,000 unit PO DAILY 04/09/16 07/05/18 Zonisamide [Zonegran] 300 mg PO HS 07/16/16 07/05/18 Acetaminophen-Codeine 300-30mg 1 tab PO Q6H PRN 09/08/17 07/05/18 [Tylenol #3] Methocarbamol [Robaxin] 500 mg PO TID PRN 09/08/17 07/05/18 carBAMazepine [TEGretol] 600 mg PO HS 09/08/17 07/05/18 Lidocaine Viscous 2% [Xylocaine 10 ml MUCOUS MEM DAILY PRN 11/18/17 07/05/18 Viscous] Zonisamide [Zonegran] 200 mg PO DAILY 07/05/18 07/05/18 traZODone HCL 150 mg PO HS 07/05/18 07/05/18 Allergies Allergy/AdvReac Type Severity Reaction Status Date / Time barium sulfate Allergy Rash/Hives Verified 07/05/18 16:55 ibuprofen [From Motrin] Allergy STOMACH Verified 07/05/18 16:55 PAIN sulfamethoxazole Allergy Unknown Verified 07/05/18 16:55 [From Bactrim] trimethoprim [From Bactrim] Allergy Unknown Verified 07/05/18 16:55 amoxicillin [From Augmentin] AdvReac STOMACH Verified 07/05/18 16:55 PAIN atropine sulfate AdvReac STOMACH Verified 07/05/18 16:55 [From ] PAIN ciprofloxacin [From Cipro] AdvReac Unknown Verified 07/05/18 16:55 clavulanic acid AdvReac STOMACH Verified 07/05/18 16:55 [From Augmentin] PAIN cyclobenzaprine HCl AdvReac NIGHTMARES Verified 07/05/18 16:55 [From Flexeril] dicyclomine HCl [From Bentyl] AdvReac STOMACH Verified 07/05/18 16:55 PAIN hyoscyamine sulfate AdvReac STOMACH Verified 07/05/18 16:55 [From ] PAIN niacin AdvReac HOT/FLUSHIN Verified 07/05/18 16:55 G NSAIDS (Non-Steroidal AdvReac stomach Verified 07/05/18 16:55 Anti-Inflamma pain phenobarbital [From ] AdvReac STOMACH Verified 07/05/18 16:55 PAIN scopolamine hydrobromide AdvReac STOMACH Verified 07/05/18 16:55 [From ] PAIN Sdajizk-Qxb-Qxy Reductase AdvReac MUSCLE Verified 07/05/18 16:55 Inhibitor WEAKNESS Review of Systems ROS Statement: Those systems with pertinent positive or pertinent negative responses have been documented in the HPI. ROS Other: All systems not noted in ROS Statement are negative. Past Medical History Past Medical History: Fibromyalgia, GERD/Reflux, Seizure Disorder, Thyroid Disorder Additional Past Medical History / Comment(s): SEE DR GARCIA'S H&P,pernicious anemia, chronic pain, LAST SEIZURE-NOV 2014, MIGRAINES,acute bronchial spasms, IBS,inflammatory & toxic neuropathy,rt upper quad pain,meralgia parasthetica,TMJ History of Any Multi-Drug Resistant Organisms: None Reported Past Surgical History: Adenoidectomy, Appendectomy, Section, Cholecystectomy, Hysterectomy, Tonsillectomy, Tubal Ligation Additional Past Surgical History / Comment(s): jaw(HAS METAL IN IT) Past Anesthesia/Blood Transfusion Reactions: Motion Sickness Additional Past Anesthesia/Blood Transfusion Reaction / Comment(s): claustrophobic Past Psychological History: Anxiety, Bipolar, Depression, PTSD Smoking Status: Former smoker Past Alcohol Use History: None Reported Past Drug Use History: None Reported - Past Family History Father Family Medical History: Congestive Heart Failure (CHF), COPD, Hyperlipidemia, Hypertension Additional Family Medical History / Comment(s): at age 63 Mother Family Medical History: Renal Disease Additional Family Medical History / Comment(s): AT AGE 88- RENAL FAILURE General Exam - General Exam Comments Initial Comments: This a well-developed well-nourished awake alert but lethargic female General appearance: alert, lethargic Head exam: Present: atraumatic, normocephalic, normal inspection Eye exam: Present: normal appearance, PERRL, EOMI. Absent: scleral icterus, conjunctival injection, periorbital swelling ENT exam: Present: mucous membranes dry Neck exam: Present: normal inspection. Absent: tenderness, meningismus, lymphadenopathy Respiratory exam: Present: normal lung sounds bilaterally. Absent: respiratory distress, wheezes, rales, rhonchi, stridor Cardiovascular Exam: Present: regular rate, normal rhythm, normal heart sounds. Absent: systolic murmur, diastolic murmur, rubs, gallop, clicks GI/Abdominal exam: Present: soft, normal bowel sounds. Absent: distended, tenderness, guarding, rebound, rigid Rectal exam: Present: deferred Extremities exam: Present: normal inspection, full ROM, normal capillary refill. Absent: tenderness, pedal edema, joint swelling, calf tenderness Back exam: Present: normal inspection Neurological exam: Present: alert, oriented X3, CN II-XII intact Psychiatric exam: Present: normal mood, flat affect Skin exam: Present: warm, dry, intact, normal color. Absent: rash Course Vital Signs 07/05/18 07/05/18 16:23 19:10 Temperature 97.8 F Pulse Rate 69 83 Respiratory 16 16 Rate Blood Pressure 97/56 98/51 O2 Sat by Pulse 99 100 Oximetry - Reevaluation(s) Reevaluation #1: 07/05/18 20:49 I did reevaluate patient several occasions and did discuss the findings with her. Medical Decision Making - Medical Decision Making I did discuss [employer] the patient she is awake alert but lethargic. She does demonstrate evidence of Tegretol toxicity. She will be admitted for evaluation of the syncopal episodes. I did discuss case with Dr. Bey's group - Lab Data Result diagrams: 07/05/18 17:45 07/05/18 17:45 Lab Results 07/05/18 07/05/18 07/05/18 Range/Units 17:45 17:45 17:45 WBC 17.5 H (3.8-10.6) k/uL RBC 4.74 (3.80-5.40) m/uL Hgb 14.1 (11.4-16.0) gm/dL Hct 42.0 (34.0-46.0) % MCV 88.6 (80.0-100.0) fL MCH 29.8 (25.0-35.0) pg MCHC 33.6 (31.0-37.0) g/dL RDW 12.6 (11.5-15.5) % Plt Count 447 (150-450) k/uL Neutrophils % 87 % Lymphocytes % 6 % Monocytes % 5 % Eosinophils % 1 % Basophils % 0 % Neutrophils # 15.2 H (1.3-7.7) k/uL Lymphocytes # 1.1 (1.0-4.8) k/uL Monocytes # 0.9 (0-1.0) k/uL Eosinophils # 0.1 (0-0.7) k/uL Basophils # 0.0 (0-0.2) k/uL PT 10.0 (9.0-12.0) sec INR 1.0 (<1.2) APTT 26.0 (22.0-30.0) sec Sodium 133 L (137-145) mmol/L Potassium 4.1 (3.5-5.1) mmol/L Chloride 101 (98-107) mmol/L Carbon Dioxide 21 L (22-30) mmol/L Anion Gap 11 mmol/L BUN 16 (7-17) mg/dL Creatinine 1.00 (0.52-1.04) mg/dL Est GFR (CKD-EPI)AfAm 70 (>60 ml/min/1.73 sqM) Est GFR (CKD-EPI)NonAf 61 (>60 ml/min/1.73 sqM) Glucose 101 H (74-99) mg/dL Calcium 9.4 (8.4-10.2) mg/dL Magnesium 1.8 (1.6-2.3) mg/dL Total Bilirubin 0.4 (0.2-1.3) mg/dL AST 21 (14-36) U/L ALT 24 (9-52) U/L Alkaline Phosphatase 84 (38-126) U/L Total Creatine Kinase (30-135) U/L CK-MB (CK-2) (0.0-2.4) ng/mL CK-MB (CK-2) Rel Index Troponin I (0.000-0.034) ng/mL Total Protein 7.0 (6.3-8.2) g/dL Albumin 4.1 (3.5-5.0) g/dL Urine Color Urine Appearance (Clear) Urine pH (5.0-8.0) Ur Specific Ada (1.001-1.035) Urine Protein (Negative) Urine Glucose (UA) (Negative) Urine Ketones (Negative) Urine Blood (Negative) Urine Nitrite (Negative) Urine Bilirubin (Negative) Urine Urobilinogen (<2.0) mg/dL Ur Leukocyte Esterase (Negative) Urine Opiates Screen (NotDetected) Ur Oxycodone Screen (NotDetected) Urine Methadone Screen (NotDetected) Ur Propoxyphene Screen (NotDetected) Ur Barbiturates Screen (NotDetected) Carbamazepine 16.6 H* ug/mL U Tricyclic Antidepress (NotDetected) Ur Phencyclidine Scrn (NotDetected) Ur Amphetamines Screen (NotDetected) U Methamphetamines Scrn (NotDetected) U Benzodiazepines Scrn (NotDetected) Urine Cocaine Screen (NotDetected) U Marijuana (THC) Screen (NotDetected) Serum Alcohol <10 mg/dL 07/05/18 07/05/18 Range/Units 17:45 20:23 WBC (3.8-10.6) k/uL RBC (3.80-5.40) m/uL Hgb (11.4-16.0) gm/dL Hct (34.0-46.0) % MCV (80.0-100.0) fL MCH (25.0-35.0) pg MCHC (31.0-37.0) g/dL RDW (11.5-15.5) % Plt Count (150-450) k/uL Neutrophils % % Lymphocytes % % Monocytes % % Eosinophils % % Basophils % % Neutrophils # (1.3-7.7) k/uL Lymphocytes # (1.0-4.8) k/uL Monocytes # (0-1.0) k/uL Eosinophils # (0-0.7) k/uL Basophils # (0-0.2) k/uL PT (9.0-12.0) sec INR (<1.2) APTT (22.0-30.0) sec Sodium (137-145) mmol/L Potassium (3.5-5.1) mmol/L Chloride (98-107) mmol/L Carbon Dioxide (22-30) mmol/L Anion Gap mmol/L BUN (7-17) mg/dL Creatinine (0.52-1.04) mg/dL Est GFR (CKD-EPI)AfAm (>60 ml/min/1.73 sqM) Est GFR (CKD-EPI)NonAf (>60 ml/min/1.73 sqM) Glucose (74-99) mg/dL Calcium (8.4-10.2) mg/dL Magnesium (1.6-2.3) mg/dL Total Bilirubin (0.2-1.3) mg/dL AST (14-36) U/L ALT (9-52) U/L Alkaline Phosphatase (38-126) U/L Total Creatine Kinase 40 (30-135) U/L CK-MB (CK-2) 0.5 (0.0-2.4) ng/mL CK-MB (CK-2) Rel Index 1.3 Troponin I <0.012 (0.000-0.034) ng/mL Total Protein (6.3-8.2) g/dL Albumin (3.5-5.0) g/dL Urine Color Yellow Urine Appearance Clear (Clear) Urine pH 5.0 (5.0-8.0) Ur Specific Ada 1.006 (1.001-1.035) Urine Protein Negative (Negative) Urine Glucose (UA) Negative (Negative) Urine Ketones Negative (Negative) Urine Blood Negative (Negative) Urine Nitrite Negative (Negative) Urine Bilirubin Negative (Negative) Urine Urobilinogen <2.0 (<2.0) mg/dL Ur Leukocyte Esterase Negative (Negative) Urine Opiates Screen Detected H (NotDetected) Ur Oxycodone Screen Not Detected (NotDetected) Urine Methadone Screen Not Detected (NotDetected) Ur Propoxyphene Screen Not Detected (NotDetected) Ur Barbiturates Screen Not Detected (NotDetected) Carbamazepine ug/mL U Tricyclic Antidepress Not Detected (NotDetected) Ur Phencyclidine Scrn Not Detected (NotDetected) Ur Amphetamines Screen Not Detected (NotDetected) U Methamphetamines Scrn Not Detected (NotDetected) U Benzodiazepines Scrn Detected H (NotDetected) Urine Cocaine Screen Not Detected (NotDetected) U Marijuana (THC) Screen Detected H (NotDetected) Serum Alcohol mg/dL - Radiology Data Radiology results: report reviewed (I did review the imaging and report no acute findings.), image reviewed Critical Care Time Critical Care Time: Yes Critical Care Time: 32 minutes of critical care time which includes initial presentation with monitoring the EMS run and discussed with paramedics history physical labs x- rays several reevaluation of the patient. Review of all imaging and labs. Discussed with the admitting physician admission orders and documentation of the above Disposition Clinical Impression: Syncope and collapse, Tegretol toxicity Disposition: ADMITTED IP TO THIS [facility] Condition: Stable [facility] - 1-2 days
[2018-07-05 17:54] LABS: Basophils % (A) 0 %; Eosinophils # (A) 0.1 k/uL (0-0.7); Eosinophils % (A) 1 %; HGB 14.1 gm/dL (11.4-16.0); Lymphocytes # (A) 1.1 k/uL (1.0-4.8); Lymphocytes % (A) 6 %; MCH 29.8 pg (25.0-35.0); MCHC 33.6 g/dL (31.0-37.0); MCV 88.6 fL (80.0-100.0); Mean Platelet Volume 6.2; Monocytes # (A) 0.9 k/uL (0-1.0); Monocytes % (A) 5 %; Neutrophils # (A) 15.2 k/uL (1.3-7.7); Neutrophils % (A) 87 %; Platelet Count 447 k/uL (150-450); RBC 4.74 m/uL (3.80-5.40); RDW 12.6 % (11.5-15.5); WBC 17.5 k/uL (3.8-10.6)
[2018-07-05 18:05] LABS: Creatine Kinase 40 U/L (30-135)
[2018-07-05 18:06] LABS: ALT 24 U/L (9-52); AST 21 U/L (14-36); Albumin 4.1 g/dL (3.5-5.0); Alcohol <10 mg/dL; Alkaline Phosphatase 84 U/L (38-126); Anion Gap 11 mmol/L; Blood Urea Nitrogen 16 mg/dL (7-17); Calcium 9.4 mg/dL (8.4-10.2); Carbon Dioxide 21 mmol/L (22-30); Chloride 101 mmol/L (98-107); Glucose 101 mg/dL (74-99); Magnesium 1.8 mg/dL (1.6-2.3); Potassium 4.1 mmol/L (3.5-5.1); Sodium 133 mmol/L (137-145); Total Bilirubin 0.4 mg/dL (0.2-1.3)
[2018-07-05 18:11] LABS: Carbamazepine (Tegretol) 16.6 ug/mL
[2018-07-05 18:19] LABS: Creatine Kinase MB 0.5 ng/mL (0.0-2.4); Troponin I <0.012 ng/mL (0.000-0.034)
--- NOTE | 2018-07-05 18:25 | CT ---
EXAMINATION TYPE: CT brain wo con DATE OF EXAM: 07/05/2018 COMPARISON: 11/18/2017 HISTORY: Syncope CT DLP: 804.9 mGycm Automated exposure control for dose reduction was used. FINDINGS: There is 10 mm hypodensity in the anterior internal capsule bilaterally consistent with old lacunar i nfarcts. Ventricles of normal size. There is no midline shift. There is no sign of intracranial hemor rhage. The calvarium is intact. IMPRESSION: BILATERAL OLD LACUNAR INFARCTS. NO ACUTE INTRACRANIAL ABNORMALITY. NO CHANGE.
--- NOTE | 2018-07-05 18:28 | XR ---
EXAMINATION TYPE: XR chest 2V DATE OF EXAM: 07/05/2018 COMPARISON: 11/09/2016 HISTORY: Stroke symptoms. Pneumonia. Weakness TECHNIQUE: Frontal and lateral views of the chest are obtained. FINDINGS: Heart and mediastinum are normal. Lungs are clear. Diaphragm is normal. There are chest le ads. Bony thorax is intact. IMPRESSION: No active cardiopulmonary disease. No change.
[2018-07-05 20:44] LABS: Appearance,Urine Clear (Clear); Bilirubin,Urine Negative (Negative); Blood,Urine Negative (Negative); Color,Urine Yellow; Glucose,Urine (UA) Negative (Negative); Ketones,Urine Negative (Negative); Leukocyte Esterase,Urine Negative (Negative); Nitrite,Urine Negative (Negative); Protein,Urine Negative (Negative); Specific Gravity,Urine 1.006 (1.001-1.035); Urobilinogen,Urine <2.0 mg/dL (<2.0)
[2018-07-05 20:55] LABS: Amphetamine Screen,Urine Not Detected (NotDetected); Barbiturate Screen,Urine Not Detected (NotDetected); Benzodiazepines Screen,Urine Detected (NotDetected); Cocaine Screen,Urine Not Detected (NotDetected); Methadone Screen, Urine Not Detected (NotDetected); Opiate Screen,Urine Detected (NotDetected); Oxycodone Screen, Urine Not Detected (NotDetected); Phencyclidine Screen,Urine Not Detected (NotDetected); Tricyclic Antidepressant,Urine Not Detected (NotDetected); Urn Cannabinoid Scrn Detected (NotDetected)
[2018-07-05] MEDS ORDERED: NALOXONE 0.4 MG/ML 1 ML VIAL IV PRN (21:00)
[2018-07-05] MEDS ORDERED: SODIUM CHLORIDE 0.9% 1,000 ML IV SCH (21:00)
[2018-07-05] MEDS ORDERED: LIDOCAINE VISCOUS 2% 15 ML CUP MUCOUS MEM PRN (21:02)
[2018-07-05] MEDS ORDERED: METHOCARBAMOL 500 MG TAB PO PRN (21:02)
[2018-07-05] MEDS ORDERED: FLUTICASONE 50MCG/SPRAY NASAL 16GM EA NOSTRIL PRN (21:02)
[2018-07-05] MEDS ORDERED: LORazepam 1 MG TAB PO PRN (21:02)
[2018-07-05] MEDS ORDERED: SUMAtriptan SUCCINATE 50 MG TAB PO PRN (21:02)
[2018-07-05] MEDS ORDERED: TRIMETHOBENZAMIDE 300 MG CAP PO PRN (21:02)
[2018-07-05] MEDS ORDERED: ESTROGENS, CONJUGATED 0.3 MG TAB PO SCH (21:15)
[2018-07-05 23:12] VITALS: BMI 28.4
[2018-07-05] MEDS: ACETAMINOPHEN TAB 325 MG TAB PO PRN (23:26)
[2018-07-05 23:47] LABS: Glucose,Whole Blood 99 mg/dL (75-99)
[2018-07-06] MEDS: traZODone HCL 50 MG TAB PO SCH ×2 (00:07→21:16)
[2018-07-06 05:37] LABS: Basophils % (A) 1 %; Eosinophils # (A) 0.1 k/uL (0-0.7); Eosinophils % (A) 1 %; Lymphocytes # (A) 1.8 k/uL (1.0-4.8); Lymphocytes % (A) 24 %; MCH 29.6 pg (25.0-35.0); MCHC 33.2 g/dL (31.0-37.0); MCV 89.2 fL (80.0-100.0); Mean Platelet Volume 6.1; Monocytes # (A) 0.6 k/uL (0-1.0); Monocytes % (A) 8 %; Neutrophils # (A) 4.7 k/uL (1.3-7.7); Neutrophils % (A) 63 %; Platelet Count 356 k/uL (150-450); RDW 12.8 % (11.5-15.5); WBC 7.4 k/uL (3.8-10.6)
[2018-07-06 05:53] LABS: Anion Gap 5 mmol/L; Blood Urea Nitrogen 14 mg/dL (7-17); Calcium 8.2 mg/dL (8.4-10.2); Carbon Dioxide 22 mmol/L (22-30); Chloride 106 mmol/L (98-107); Glucose 98 mg/dL (74-99); Potassium 4.1 mmol/L (3.5-5.1); Sodium 133 mmol/L (137-145)
[2018-07-06] MEDS: LEVOTHYROXINE 100 MCG TAB PO SCH (06:05)
[2018-07-06 07:48] LABS: Glucose,Whole Blood 102 mg/dL (75-99)
--- NOTE | 2018-07-06 07:57 | HP ---
HISTORY AND PHYSICAL DATE OF SERVICE: 07/05/2018 CHIEF COMPLAINT: Syncope. HISTORY OF PRESENT ILLNESS: This 62-year-old woman with a past medical history of multiple medical problems including history of fibromyalgia, seizure disorder, hypothyroidism, history of adenoidectomy, history of anxiety, bipolar, depression, PTSD, being followed by [facility] in the outpatient setting, was complaining of syncope. Patient apparently had multiple episodes for syncope. Patient also had previous episode syncope and nonepileptic seizures also. The patient also had head injury also during one time and the patient came to [facility] and admitted for further evaluation and treatment. Accu-Cheks was 137. Patient also had brain CAT scan which showed bilateral old lacunar infarcts. No new changes are noted. Patient admitted for further evaluation and treatment. There is no history of any fever, rigor, chills at this time. Her Tegretol levels were high. PAST MEDICAL HISTORY: History of fibromyalgia, GERD, seizures, nonepileptic seizures, history of pernicious anemia, history of adenoidectomy, appendectomy history of anxiety, bipolar, PTSD. MEDICATIONS: Medications are the home medications are: 1. Trazodone 150 mg at bedtime. 2. Tegretol 600 mg at bedtime and 400 mg q.a.m. 3. Zonegran 200 mg p.o. daily. 4. Zonegran 300 mg at bedtime. 5. Tigan 300 mg t.i.d. p.r.n. 6. Imitrex 100 mg b.i.d. p.r.n. 7. Prilosec 20 mg a.c. b.i.d. 8. Robaxin 500 mg t.i.d. p.r.n. 9. Xylocaine 10 mL 10.Synthroid 100 mcg p.o. q.a.m. 11.Ativan 1 mg p.o. t.i.d. p.r.n. 12.Flonase 1 spray daily p.r.n. 13.Premarin 0.3 mg Thursday, Thursday. 14.Cymbalta 60 mg p.o. b.i.d. 15.Vitamin B12, 1000 mcg p.o. daily. 16.Vitamin D3, 2000 daily. 17.Tylenol No 3 one p.o. q.6 p.r.n. ALLERGIES: Allergies are multiple allergies BARIUM, IBUPROFEN, BACTRIM, AUGMENTIN, , CIPRO, AUGMENTIN, FLEXERIL, BENTYL, , NIACIN, STATINS. FAMILY HISTORY: History of CHF, COPD, hypertension, hyperlipidemia. SOCIAL HISTORY: History of smoking. History of THC. REVIEW OF SYSTEMS: ENT: No diminished hearing or diminished vision. CARDIOVASCULAR SYSTEM: No angina. RESPIRATORY SYSTEM: No cough. GI: As mentioned earlier. : No dysuria. NERVOUS SYSTEM: As mentioned earlier. ALLERGY/IMMUNOLOGY: No asthma. MUSCULOSKELETAL: As mentioned earlier. HEMATOLOGY/ONCOLOGY: No history of anemia. ENDOCRINE: Hypothyroidism. CONSTITUTIONAL: As mentioned earlier. DERMATOLOGY; Negative. RHEUMATOLOGY: Negative. PSYCHIATRY: As mentioned earlier. PHYSICAL EXAMINATION: The patient is alert and oriented x3. Pulse 86, blood pressure 147/88, respiration 20, temperature 97.8, pulse ox 98% on room air. HEENT: Conjunctivae normal. Oral mucosa moist. Neck is no jugular venous distention. No carotid bruit. No lymph node enlargement. CARDIOVASCULAR: S1 and S2 muffled. RESPIRATORY: Breath sound diminished at the bases. No rhonchi, no crackles. ABDOMEN: Soft, nontender. No mass palpable. LEGS: No edema, no swelling. NERVOUS SYSTEM: Higher function as mentioned. Moves all 4 limbs. No focal deficits. LYMPHATICS: No lymphadenopathy of the neck, axillae or groin. SKIN: No ulcer, rash or bleeding. LABS: WBC is 17.5, hemoglobin 14.1. UA noted. Carbamazepine 16.6. Drug screen is positive for THC. ASSESSMENT: 1. Syncope for evaluation possible Tegretol toxicity. 2. History of bilateral lacunar infarcts. 3. History of previous head injury. 4. Fibromyalgia. 5. Gastroesophageal reflux disease. 6. Seizures and nonepileptic seizures. 7. Hypothyroidism. 8. History of anemia. 9. History of migraines. 10.History of irritable bowel syndrome. 11.History of toxic neuropathy. 12.History of anxiety, bipolar, depression, posttraumatic stress disorder. 13.History of nicotine dependence. 14.Increased WBC. 15.Hyponatremia. RECOMMENDATIONS AND DISCUSSION: In this 62-year-old woman who presented with multiple complex medical issues, will monitor the patient closely. Continue the current medications, continue symptomatic treatment. I would recommend hold the Tegretol and I would also recommend a neurology consultation, PT, OT evaluation. Otherwise repeat labs. I would also recommend repeat Tegretol levels also. The prognosis guarded because of multiple complex medical issues. Further recommendations to follow. See orders for details. I would recommend the patient to follow up with primary physician closely. PT, OT also will be evaluated. MMODL / IJN: [id number] / MTDD
[2018-07-06] MEDS: CYANOCOBALAMIN 500 MCG TAB PO SCH (09:04)
[2018-07-06] MEDS: ZONISAMIDE 100 MG CAP PO SCH ×2 (09:04→21:16)
[2018-07-06] MEDS: HEPARIN SODIUM,PORCINE 5,000 UNIT/ML 1 ML VIAL SQ SCH ×2 (09:04→21:15)
[2018-07-06] MEDS: PANTOPRAZOLE 40 MG TABLET PO SCH ×2 (09:04→17:21)
[2018-07-06] MEDS: DULoxetine HCL 60 MG CAPSULE.DR PO SCH ×2 (09:04→21:15)
[2018-07-06] MEDS: CHOLECALCIFEROL 1,000 UNIT TAB PO SCH (09:04)
[2018-07-06] MEDS: ACETAMINOPHEN TAB 325 MG TAB PO PRN (09:15)
[2018-07-06] MEDS ORDERED: SODIUM CHLORIDE 0.9% 500 ML IV ONE ×2 (09:49→21:08)
[2018-07-06] MEDS: Acetaminophen-Codeine 300-30mg TAB PO PRN ×2 (14:22→21:16)
--- NOTE | 2018-07-06 15:51 | P.CNNES ---
History of Present Illness Consult date: 07/06/18 Requesting physician: Hayley Bey Reason for Consult: Syncope Chief complaint: Syncope History of Present Illness: Neurology's consulting on a 62-year-old female who has multiple complex medical conditions. History includes fibromyalgia, seizure disorder, hypothyroidism, anxiety, bipolar depression, PTSD and is followed by [facility]. Patient is being consult on for syncope as well as psychogenic seizure. She does have a documented psychogenic seizure as well as syncope history with [facility] neurologist, Dr. Bañuelos. Patient was seen by Dr. Bañuelos approximately 2 weeks ago. He is aware of her syncopal episodes. He has also been engaged in diagnostic workup on the patient as well. She states that Dr. Bañuelos had advised her at the last office visit that at her next office visit he was going to make significant changes in her medication regimen. Patient is unclear which medications were to be changed and/or dosing altered. 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 Syncopal episodes began to occur greater than 10 years ago. Patient reports that the only change from her previous syncopal episodes since inception until presentation is that the latest events were more intense and she did have increased difficulty with mental clarity postevent. Patient was evaluated by cardiology at [facility] in 2017 and cardiology reportedly cleared the patient however they recommended a Holter monitor and the patient declined. Patient states that she was lying down and then chris to a seated position, began having her symptoms which are known to her as her syncopal episode. She states that she potentially had as many as 2 prior to EMS arrival which lasted possibly up to several minutes. On contact, patient was alert and oriented 3, resting in bed in no acute distress. Review of Systems Systems not noted in HPI or negative. Past Medical History Past Medical History: Fibromyalgia, GERD/Reflux, Seizure Disorder, Thyroid Disorder Additional Past Medical History / Comment(s): SEE DR GARCIA'S H&P,pernicious anemia, chronic pain, LAST SEIZURE-2018, MIGRAINES,acute bronchial spasms,IBS, inflammatory & toxic neuropathy,rt upper quad pain,meralgia parasthetica,TMJ History of Any Multi-Drug Resistant Organisms: None Reported Past Surgical History: Adenoidectomy, Appendectomy, Section, Cholecystectomy, Hysterectomy, Joint Replacement, Orthopedic Surgery, Tonsillectomy, Tubal Ligation Additional Past Surgical History / Comment(s): jaw(HAS METAL IN IT), left hip replacement Past Anesthesia/Blood Transfusion Reactions: Motion Sickness Additional Past Anesthesia/Blood Transfusion Reaction / Comment(s): claustrophobic Past Psychological History: Anxiety, Bipolar, Depression, PTSD Additional Psychological History / Comment(s): personality disorder. STARTED SMOKING 2005 AFTER A DIVORCE,SMOKES NO MORE THAN 1/2 PPD. pt stated she recently had fallen hit head/rt arm had xray of arm at [facility] (was ok). pt stated ever since fall has had some slightconfusion. Smoking Status: Never smoker Past Alcohol Use History: None Reported Past Drug Use History: None Reported Additional Drug Use History / Comment(s): uses marijuana weekly-has medical marijuana card - Past Family History Father Family Medical History: Congestive Heart Failure (CHF), COPD, Hyperlipidemia, Hypertension Additional Family Medical History / Comment(s): at age 63 Mother Family Medical History: Renal Disease Additional Family Medical History / Comment(s): AT AGE 88- RENAL FAILURE Medications and Allergies Home Medications Medication Instructions Recorded Confirmed Type Cyanocobalamin [Vitamin B-12] 1,000 mcg PO DAILY 11/20/14 07/05/18 History DULoxetine HCL [Cymbalta] 60 mg PO BID 11/20/14 07/05/18 History Estrogens, Conjugated [Premarin] 0.3 mg PO MOFR 11/20/14 07/05/18 History Fluticasone Propionate [Flonase] 1 spray EA NOSTRIL DAILY PRN 11/20/14 07/05/18 History LORazepam [Ativan] 1 mg PO TID PRN 11/20/14 07/05/18 History Levothyroxine Sodium [Synthroid] 100 mcg PO QAM 11/20/14 07/05/18 History Omeprazole [PriLOSEC] 20 mg PO AC-BID 11/20/14 07/05/18 History SUMAtriptan SUCCINATE [Imitrex] 100 mg PO BID PRN 11/20/14 07/05/18 History Trimethobenzamide [Tigan] 300 mg PO TID PRN 11/20/14 07/05/18 History carBAMazepine [TEGretol] 400 mg PO QAM 11/20/14 07/05/18 History Cholecalciferol [Vitamin D3] 2,000 unit PO DAILY 04/09/16 07/05/18 History Zonisamide [Zonegran] 300 mg PO HS 07/16/16 07/05/18 History Acetaminophen-Codeine 300-30mg 1 tab PO Q6H PRN 09/08/17 07/05/18 History [Tylenol #3] Methocarbamol [Robaxin] 500 mg PO TID PRN 09/08/17 07/05/18 History carBAMazepine [TEGretol] 600 mg PO HS 09/08/17 07/05/18 History Lidocaine Viscous 2% [Xylocaine 10 ml MUCOUS MEM DAILY PRN 11/18/17 07/05/18 History Viscous] Zonisamide [Zonegran] 200 mg PO DAILY 07/05/18 07/05/18 History traZODone HCL 150 mg PO HS 07/05/18 07/05/18 History Allergies Allergy/AdvReac Type Severity Reaction Status Date / Time barium sulfate Allergy Rash/Hives Verified 07/05/18 16:55 ibuprofen [From Motrin] Allergy STOMACH Verified 07/05/18 16:55 PAIN sulfamethoxazole Allergy Unknown Verified 07/05/18 16:55 [From Bactrim] trimethoprim [From Bactrim] Allergy Unknown Verified 07/05/18 16:55 amoxicillin [From Augmentin] AdvReac STOMACH Verified 07/05/18 16:55 PAIN atropine sulfate AdvReac STOMACH Verified 07/05/18 16:55 [From ] PAIN ciprofloxacin [From Cipro] AdvReac Unknown Verified 07/05/18 16:55 clavulanic acid AdvReac STOMACH Verified 07/05/18 16:55 [From Augmentin] PAIN cyclobenzaprine HCl AdvReac NIGHTMARES Verified 07/05/18 16:55 [From Flexeril] dicyclomine HCl [From Bentyl] AdvReac STOMACH Verified 07/05/18 16:55 PAIN hyoscyamine sulfate AdvReac STOMACH Verified 07/05/18 16:55 [From ] PAIN niacin AdvReac HOT/FLUSHIN Verified 07/05/18 16:55 G NSAIDS (Non-Steroidal AdvReac stomach Verified 07/05/18 16:55 Anti-Inflamma pain phenobarbital [From ] AdvReac STOMACH Verified 07/05/18 16:55 PAIN scopolamine hydrobromide AdvReac STOMACH Verified 07/05/18 16:55 [From ] PAIN Ikphrkj-Tnr-Gnk Reductase AdvReac MUSCLE Verified 07/05/18 16:55 Inhibitor WEAKNESS Physical Examination - Vital Signs Vital Signs: Vital Signs Temp Pulse Pulse Resp BP BP Pulse Ox 07/06/18 07:20 97.4 F L 69 16 89/51 93 L 07/06/18 00:40 98.4 F 77 16 136/79 99 07/05/18 21:50 86 20 147/88 98 07/05/18 19:10 83 16 98/51 100 07/05/18 16:23 97.8 F 69 16 97/56 99 Intake and Output 07/06/18 07/06/18 07/06/18 06:59 14:59 22:59 Intake Total 160 640 Balance 160 640 Intake: Intake, IV Titration 160 640 Amount Sodium Chloride 0.9% 1, 160 140 000 ml @ 20 mls/hr IV . Q24H [facility] Rx#:[id number] Sodium Chloride 0.9% 500 500 ml @ 999 mls/hr IV .Q31M ONE Rx#:[id number] Other: Voiding Method Toilet # Voids 1 Gen. appearance: Alert, in no apparent distress Head: Atraumatic normocephalic, normal inspection Eyes: Well appearance, PERRL, EOMI. absent: Scleral icterus, conjunctival injection, nystagmus, periorbital swelling. Ear nose and throat: Normal exam, mucous membranes moist Neck: Normal inspection. Absent tenderness, lymphadenopathy Respiratory: No increased work of breathing. Cardiovascular: Regular rate, normal rhythm, normal heart sounds. Absent systolic murmur, diastolic murmur, rubs, gallops, clicks GIabdominal: Normal bowel sounds, non distended, no tenderness, no guarding, no rebound, no rigidity. Extremities: All range of motion, normal capillary refill, no tenderness, pedal edema, joint swelling, calf tenderness Neurological: Alert and oriented 3, cranial nerves II through XII intact, no unilateral lateralizing weakness, no seizure activity noted on physical exam, no pronator drift and no nystagmus. Slight decreased sensation left lower extremity which is known to be old per patient Psychological: Mood and affect appropriate setting Results - Laboratory Findings CBC and BMP: 07/06/18 05:24 07/06/18 05:24 Abnormal Lab Findings: Abnormal Labs 07/05/18 07/05/18 07/05/18 17:45 17:45 20:23 WBC 17.5 H RBC Hgb Hct Neutrophils # 15.2 H Sodium 133 L Carbon Dioxide 21 L Glucose 101 H POC Glucose (mg/dL) Calcium Urine Opiates Screen Detected H Carbamazepine 16.6 H* U Benzodiazepines Scrn Detected H U Marijuana (THC) Screen Detected H 07/06/18 07/06/18 07/06/18 05:24 05:24 07:17 WBC RBC 3.70 L Hgb 11.0 L D Hct 33.0 L Neutrophils # Sodium 133 L Carbon Dioxide Glucose POC Glucose (mg/dL) 102 H Calcium 8.2 L Urine Opiates Screen Carbamazepine U Benzodiazepines Scrn U Marijuana (THC) Screen Assessment and Plan (1) Syncope Narrative/Plan: Patient does appear to have experienced a syncopal episode of at least one prior to admission. Patient does have a known history of syncopal episodes and is being evaluated/managed by her routine neurologist at [facility]. Only reported change to condition is the duration. Based on patient' s information that she was recommended for halter monitor as well as her explanation of the events, it does appear more medically possible that the patient syncopal episodes are related to cardiac etiology. However given the change in duration we will continue with a baseline neurological workup for syncope at this time to attempt to identify any new or changed underlying neurological etiology. Diagnostic workup to include: Carotid Doppler studyultrasound-guided EEG Orthostatic checks every shift Neurological checks per order rash or as implemented previously CT brain noted bilateral old lacunar infarcts, no acute process. Fall precautions continued Recommendations once results of testing is received and reviewed. Continue with plan of care as ordered Current Visit: No Status: Acute Code(s): R55 - SYNCOPE AND COLLAPSE SNOMED Code(s): 592579530 (2) Altered mental status Narrative/Plan: She has altered mental status is most likely due to an underlying cardiac etiology. Further neurological baseline workup is currently in process. Other recommendations upon receipt and review of results. Current Visit: No Status: Acute Code(s): R41.82 - ALTERED MENTAL STATUS, UNSPECIFIED SNOMED Code(s): 778477607 (3) Cannabis misuse Narrative/Plan: Patient urine drug screen noted that she was positive for cannabis/marijuana use. Patient is also positive for benzodiazepines as well as opiates. Given the patient's seizure medication use as well as the noted substances, it does appear that there could also be a potential interaction of prescribed medications as well as the patient's marijuana use. Current Visit: Yes Status: Acute Code(s): F12.90 - CANNABIS USE, UNSPECIFIED , UNCOMPLICATED SNOMED Code(s): 736722844 (4) Hyperglycemia Narrative/Plan: Patient does have noted elevated blood sugar that is mildly elevated and laboratory blood work. Defer to primary team for further management. Current Visit: No Status: Acute Code(s): R73.9 - HYPERGLYCEMIA, UNSPECIFIED SNOMED Code(s): 42967015 (5) Tegretol toxicity Narrative/Plan: She did have noted elevated Tegretol level at 16.6 with a high-end therapeutic window at 12. Patient's Tegretol was discontinued by ED physician. Patient continued on Zonegran per home medication dosing and frequency Repeat Tegretol level tomorrow. Reassess Tegretol use post updated laboratory blood work. Patient currently has remained seizure-free Patient's seizures are primarily psychogenic. Continue with plan of care as implemented. Current Visit: Yes Status: Acute Code(s): T42.1X1A - POISONING BY IMINOSTILBENES, ACCIDENTAL, INIT SNOMED Code(s): 588425233 (6) Hyponatremia Narrative/Plan: She is known to be hyponatremic on laboratory blood work results. Defer to primary team for further management. Current Visit: No Status: Acute Code(s): E87.1 - HYPO-OSMOLALITY AND HYPONATREMIA SNOMED Code(s): 58496959 Plan: STATUS: Neurology will continue to follow and provide updates as needed or warranted. Feel free to contact our office with any questions. I discussed the patients history, physical exam, diagnostic testing, lab work and imaging with Dr Medina prior to implementing the plan above. He agrees with the plan as implemented prior to implementation.
--- NOTE | 2018-07-06 18:17 | PN ---
PROGRESS NOTE DATE OF SERVICE: 07/06/2018 This 62-year-old woman who was admitted with syncope also had high Tegretol levels. No chest pain. No palpitations. No fever. The patient is slightly stronger today. PHYSICAL EXAMINATION: Alert and oriented x3. Pulse 69, blood pressure 89/51, respiration 16, temperature 97.4, pulse ox 93% on room air. HEENT: Conjunctivae normal. Oral mucosa moist. NECK: No jugular venous distention. No carotid bruit. No lymph node enlargement. CARDIOVASCULAR SYSTEM: S1, S2 muffled. RESPIRATORY SYSTEM: Breath sounds diminished at the bases. No rhonchi. No crackles. ABDOMEN: Soft, non-tender. NERVOUS SYSTEM: ntd LABS: WBC 7.4, hemoglobin 11. ASSESSMENT: 1. Syncope for evaluation. Rule out orthostatic hypotension. 2. Possible Tegretol toxicity. 3. Relative hypotension. 4. History of bilateral lacunar infarcts. 5. History of previous head injury. 6. Fibromyalgia. 7. Gastroesophageal reflux disease. 8. History of seizures; non-epileptic seizures. 9. Hypothyroidism. 10.History of anemia. 11.History of migraines. 12.History of irritable bowel syndrome. 13.History of toxic neuropathy. 14.Anxiety, bipolar depression, post-traumatic stress disorder. 15.History of nicotine dependence. 16.Increased white count. 17.Hyponatremia. RECOMMENDATIONS AND DISCUSSION: I recommend to continue current medication, continue with monitoring, symptomatic treatment. We will monitor the patient closely. I would recommend holding off the blood pressure medication at this time and continue to monitor. I would also do an 8 a.m. serum cortisol. Orthostatic vitals also will be requested. Further recommendations to follow. MMODL / IJN: [id number] / JONATHAN
[2018-07-06] MEDS ORDERED: SODIUM CHLORIDE 0.9% 1,000 ML IV SCH (20:45)
[2018-07-06] MEDS ORDERED: traZODone HCL 50 MG TAB PO SCH (21:00)
[2018-07-06] MEDS: SODIUM CHLORIDE 0.9% 1,000 ML IV SCH (21:15)
--- NOTE | 2018-07-06 23:25 | US ---
EXAMINATION TYPE: US carotid duplex BILAT DATE OF EXAM: 07/06/2018 COMPARISON: NONE CLINICAL HISTORY: SYNCOPE. EXAM MEASUREMENTS: RIGHT: Peak Systolic Velocity (PSV) cm/sec ----- Right CCA: 70.4 ----- Right ICA: 131.9 ----- Right ECA: 94.3 ICA/CCA ratio: 1.9 RIGHT: End Diastole cm/sec ----- Right CCA: 18.9 ----- Right ICA: 52.7 ----- Right ECA: 13.9 LEFT: Peak Systolic Velocity (PSV) cm/sec ----- Left CCA: 75.6 ----- Left ICA: 139.2 ----- Left ECA: 68.1 ICA/CCA ratio: 1.8 LEFT: End Diastole cm/sec ----- Left CCA: 19.7 ----- Left ICA: 55.6 ----- Left ECA: 11.7 VERTEBRALS (direction of flow): Right Vertebral: Antegrade Left Vertebral: Antegrade Rhythm: Normal IMPRESSION: 1. No flow limiting carotid stenosis. 2. Bilateral intimal thickening, with elevated velocities in the right distal ICA, and left mid and distal ICA.
[2018-07-07] MEDS: SODIUM CHLORIDE 0.9% 1,000 ML IV SCH ×3 (05:29→20:41)
[2018-07-07] MEDS: LEVOTHYROXINE 100 MCG TAB PO SCH (05:29)
[2018-07-07] MEDS: CYANOCOBALAMIN 500 MCG TAB PO SCH (08:05)
[2018-07-07] MEDS: ZONISAMIDE 100 MG CAP PO SCH ×2 (08:05→20:41)
[2018-07-07] MEDS: HEPARIN SODIUM,PORCINE 5,000 UNIT/ML 1 ML VIAL SQ SCH ×2 (08:05→20:40)
[2018-07-07] MEDS: CHOLECALCIFEROL 1,000 UNIT TAB PO SCH (08:05)
[2018-07-07] MEDS: DULoxetine HCL 60 MG CAPSULE.DR PO SCH ×2 (08:05→20:40)
[2018-07-07] MEDS: PANTOPRAZOLE 40 MG TABLET PO SCH ×2 (08:05→17:42)
[2018-07-07 08:24] LABS: Basophils % (A) 1 %; Eosinophils # (A) 0.2 k/uL (0-0.7); Eosinophils % (A) 2 %; HCT 34.4 % (34.0-46.0); HGB 11.5 gm/dL (11.4-16.0); Lymphocytes # (A) 2.1 k/uL (1.0-4.8); Lymphocytes % (A) 30 %; MCH 29.8 pg (25.0-35.0); MCHC 33.5 g/dL (31.0-37.0); MCV 89.1 fL (80.0-100.0); Mean Platelet Volume 6.3; Monocytes # (A) 0.6 k/uL (0-1.0); Monocytes % (A) 8 %; Neutrophils # (A) 3.9 k/uL (1.3-7.7); Neutrophils % (A) 57 %; Platelet Count 348 k/uL (150-450); RBC 3.87 m/uL (3.80-5.40); RDW 12.8 % (11.5-15.5); WBC 6.9 k/uL (3.8-10.6)
[2018-07-07 11:39] LABS: Anion Gap 7 mmol/L; Blood Urea Nitrogen 5 mg/dL (7-17); Carbamazepine (Tegretol) <3.0 ug/mL; Carbon Dioxide 21 mmol/L (22-30); Chloride 111 mmol/L (98-107); Glucose 106 mg/dL (74-99); Potassium 4.3 mmol/L (3.5-5.1); Sodium 139 mmol/L (137-145)
[2018-07-07] MEDS: Acetaminophen-Codeine 300-30mg TAB PO PRN ×2 (14:22→20:51)
--- NOTE | 2018-07-07 17:59 | P.PN ---
Subjective Progress Note Date: 07/07/18 Principal diagnosis: syncope, psychogenic seizure Neurology is following a 62-year-old female with multiple complex medical conditions. Patient has a history of the following: Fibromyalgia, seizure disorder, hypothyroidism, anxiety, bipolar depression or PTSD and is [facility]. Patient is routinely under the care of Dr. Bañuelos her primary neurologist out of [facility]. Patient was seen by Dr. Bañuelos approximately 2 weeks ago and is aware of her syncopal episodes and has previously worked up patient. Patient presented dt increased intensity which has been significantly elevated over previous occurrences. Patient was evaluated by [facility] cardiology last year and holter monitor was recommended but the patient declined your patient. Patient has psychogenic seizures since approximately 5 years of age. Patient states the seizures are controlled on her current medication regimen although Dr Bañuelos reportedly was planning to make changes at her next office visit per patient. On contact, patient was alert and oriented 3, resting in bed in no acute distress. Nursing staff was in the room and reports no neurological status changes in the last 24 hours. Objective - Vital Signs Vital signs: Vital Signs Temp 97.8 F 07/07/18 15:22 Pulse 74 07/07/18 16:00 Resp 16 07/07/18 16:00 BP 177/84 07/07/18 15:22 Pulse Ox 99 07/07/18 15:22 Intake & Output 07/06/18 07/07/18 07/07/18 18:59 06:59 18:59 Intake Total 640 1625 875 Balance 640 1625 875 Intake: Intake, IV Titration 640 1625 875 Amount Sodium Chloride 0.9% 1, 1125 875 000 ml @ 125 mls/hr IV . Q8H [facility] Rx#:[id number] Sodium Chloride 0.9% 1, 140 000 ml @ 20 mls/hr IV . Q24H [facility] Rx#:[id number] Sodium Chloride 0.9% 500 500 ml @ 999 mls/hr IV .Q31M [facility] Rx#:[id number] Sodium Chloride 0.9% 500 500 ml @ 999 mls/hr IV .Q31M [facility] Rx#:[id number] Other: Voiding Method Toilet # Voids 3 - Exam General appearance: Alert & oriented x3, no apparent distress. Head: Atraumatic, normocephalic, normal inspection Eyes: Well appearance, PERRLA, EOMI. Absent scleral icterus, conjunctival injection, nystagmus, periorbital swelling. Ear, nose and throat: Normal exam, mucous membranes moist Neck: Normal inspection, absent tenderness, lymphadenopathy. Respiratory: No increased work of breathing Cardiovascular: Regular rate, rhythm GI/abdominal: No guarding Extremities: Full range of motion, normal capillary refill, no tenderness, pedal edema joint swelling, calf tenderness. Neurological: cranial nerves II through XII intact no lateralizing weakness no seizure activity noted on physical exam no pronator drift and no nystagmus. Left lower extremity: 5/5 Right lower extremity: 5/5 Left upper extremity: 5/5 Right upper extremity:5 /5 Sensation: Left lower extremity: normal Right lower extremity: normal Left upper extremity: normal Right upper extremity:normal Psychological: Mood and Affect appropriate for setting - Labs CBC & Chem 7: 07/07/18 07:03 07/07/18 06:42 Labs: Abnormal Lab Results - Last 24 Hours (Table) 07/06/18 07/07/18 Range/Units 19:55 06:42 Chloride 111 H (98-107) mmol/L Carbon Dioxide 21 L (22-30) mmol/L BUN 5 L (7-17) mg/dL Glucose 106 H (74-99) mg/dL Plasma Lactic Acid [place] 3.3 H* (0.7-2.0) mmol/L Assessment and Plan (1) Syncope Narrative/Plan: Patient does appear to have experienced a syncopal episode of at least one prior to admission. Patient does have a known history of syncopal episodes and is being evaluated/managed by her routine neurologist at [facility]. Only reported change to condition is the duration. Based on patient' s information that she was recommended for halter monitor as well as her explanation of the events, it does appear more medically possible that the patient syncopal episodes are related to cardiac etiology. Diagnostic workup to include: Carotid Doppler studyultrasound-guided: Unremarkable EEG: Normal Orthostatic checks every shift Neurological checks per order rash or as implemented previously CT brain noted bilateral old lacunar infarcts, no acute process. Fall precautions continued Recommendations once results of testing is received and reviewed. Patient can be cleared for discharge from a neurological standpoint and referred back to primary neurologist at [facility]. Current Visit: No Status: Acute Code(s): R55 - SYNCOPE AND COLLAPSE SNOMED Code(s): 718197691 (2) Altered mental status Narrative/Plan: She has altered mental status is most likely due to an underlying cardiac etiology. Neurological etiology has been ruled out at this time. Defer to cardiology. Current Visit: No Status: Acute Code(s): R41.82 - ALTERED MENTAL STATUS, UNSPECIFIED SNOMED Code(s): 188894647 (3) Cannabis misuse Narrative/Plan: Patient urine drug screen noted that she was positive for cannabis/marijuana use. Patient is also positive for benzodiazepines as well as opiates. Given the patient's seizure medication use as well as the noted substances, it does appear that there could also be a potential interaction of prescribed medications as well as the patient's marijuana use. Current Visit: Yes Status: Acute Code(s): F12.90 - CANNABIS USE, UNSPECIFIED , UNCOMPLICATED SNOMED Code(s): 909543564 (4) Hyperglycemia Narrative/Plan: Patient does have noted elevated blood sugar that is mildly elevated and laboratory blood work. Defer to primary team for further management. Current Visit: No Status: Acute Code(s): R73.9 - HYPERGLYCEMIA, UNSPECIFIED SNOMED Code(s): 98616350 (5) Tegretol toxicity Narrative/Plan: RESOLVED Patient's Tegretol was discontinued by ED physician. Patient continued on Zonegran per home medication dosing and frequency patient's Tegretol level is subtherapeutic. He has remained seizure free and asymptomatic since implementation of zonegran Patient's seizures are primarily psychogenic. Continue with plan of care as implemented in the outpatient setting. Current Visit: Yes Status: Acute Code(s): T42.1X1A - POISONING BY IMINOSTILBENES, ACCIDENTAL, INIT SNOMED Code(s): 059290508 Plan: STATUS: Patient will be cleared for discharge from a neurological standpoint. Patient to contact primary neurologist, Dr. Bañuelos for follow-up in the outpatient setting.. I have discussed the plan of care with the physician prior to implementation and he agrees with the plan as implemented.
--- NOTE | 2018-07-07 19:30 | EEG ---
ELECTROENCEPHALOGRAM REPORT DATE OF SERVICE: 07/07/2018 REASON FOR TESTING: Syncope. DESCRIPTION OF THE PROCEDURE: This EEG was performed using a 21-channel digital electroencephalograph, following international 10-20 system. DESCRIPTION OF THE RECORDING: From the beginning of the tracing, and with the patient's eyes closed, the background rhythm was mostly consisting of 8 Hz alpha frequency in the posterior occipital leads. No obvious asymmetry is seen. Photic stimulation was performed with a minimal driving response seen. No pathological waves were elicited. Hyperventilation was not performed. Occasional movement artifacts are seen. The patient remains awake throughout the tracing. No epileptiform discharges were seen. Her EKG lead showed a regular rate and rhythm. INTERPRETATION: This awake EEG can be considered within normal limits. There was no asymmetry seen. No epileptiform discharges were noticed. The absence of epileptiform discharges does not rule out the diagnosis of epilepsy; therefore clinical correlation is recommended. MARIKA / SALLY: [id number] /
[2018-07-07] MEDS: traZODone HCL 50 MG TAB PO SCH (20:40)
--- NOTE | 2018-07-07 20:51 | DS ---
DISCHARGE SUMMARY DATE OF SERVICE: 07/07/2018 FINAL DIAGNOSES: 1. Syncope, possibly orthostatic hypotension. Rule out cardiac causes. 2. Possible Tegretol toxicity, present on admission. 3. Relative hypotension. 4. History of bilateral lacunar infarcts. 5. History of previous head injury. 6. Fibromyalgia. 7. Gastroesophageal reflux disease. 8. History of seizures; non-epileptic seizures. 9. History of hypothyroidism. 10.History of anemia. 11.History of migraines. 12.Irritable bowel syndrome. 13.History of toxic neuropathy. 14.History of anxiety, bipolar, depression, post-traumatic stress disorder. 15.History of nicotine dependence. 16.Increased white count. 17.Hyponatremia. DISCHARGE DISPOSITION: The patient will be discharged in stable condition with guarded prognosis. Discharge cleared by Neurology. HISTORY OF PRESENT ILLNESS: This 62-year-old woman with a past medical history of multiple medical problems was admitted with syncope. The patient was treated symptomatically. Patient improved significantly. Dr. Medina saw the patient. Patient is also seeing patient's own neurologist. Dr. Medina recommended followup with the patient's neurologist. On exam, vitals are stable. CARDIOVASCULAR SYSTEM: S1, S2 muffled. ABDOMEN: Soft. NERVOUS SYSTEM: No focal deficit. DISCHARGE ADVICE AND MEDICATIONS: 1. Diet is cardiac. 2. Follow up with primary physician. 3. Hold Tegretol at this time. 4. Tylenol #3 q.6 p.r.n. 5. Vitamin D3 2000 daily. 6. Vitamin B12 1000 mg daily. 7. Cymbalta 60 mg b.i.d. 8. Conjugated estrogens 0.3 as before. 9. Flonase 1 spray daily. 10.Synthroid 100 mcg p.o. daily. 11.Lidocaine 10 mL mucous membrane. 12.Ativan 1 mg t.i.d. p.r.n. 13.Robaxin 500 mg p.o. t.i.d. 14.Prilosec 20 mg b.i.d. 15.Imitrex 100 mg b.i.d. p.r.n. 16.Trazodone 150 mg at bedtime. 17.Tigan 300 mg t.i.d. 18.Zonegran 300 mg at bedtime and 200 mg p.o. daily. 19.Follow up with patient's own neurologist. 20.Follow up with [facility]. [id number] / IJN: [id number] /
[2018-07-07 21:30] VITALS: PULSE 67
[2018-07-08] MEDS: Acetaminophen-Codeine 300-30mg TAB PO PRN (02:36)
[2018-07-08] MEDS: LEVOTHYROXINE 100 MCG TAB PO SCH (05:23)
[2018-07-08] MEDS: SODIUM CHLORIDE 0.9% 1,000 ML IV SCH (05:23)
[2018-07-08 05:59] VITALS: BP 117/59; RESP 16; TEMP 98
[2018-07-08] MEDS: CYANOCOBALAMIN 500 MCG TAB PO SCH (07:30)
[2018-07-08] MEDS: PANTOPRAZOLE 40 MG TABLET PO SCH (07:30)
[2018-07-08] MEDS: DULoxetine HCL 60 MG CAPSULE.DR PO SCH (07:31)
[2018-07-08] MEDS: CHOLECALCIFEROL 1,000 UNIT TAB PO SCH (07:31)
[2018-07-08] MEDS: ZONISAMIDE 100 MG CAP PO SCH (07:32)
[2018-07-08] MEDS: HEPARIN SODIUM,PORCINE 5,000 UNIT/ML 1 ML VIAL SQ SCH (07:32)
[2018-07-08 07:45] LABS: Basophils # (A) 0.1 k/uL (0-0.2); Basophils % (A) 1 %; Eosinophils # (A) 0.1 k/uL (0-0.7); Eosinophils % (A) 2 %; HCT 33.4 % (34.0-46.0); HGB 10.8 gm/dL (11.4-16.0); Lymphocytes # (A) 1.6 k/uL (1.0-4.8); Lymphocytes % (A) 26 %; MCH 29.5 pg (25.0-35.0); MCHC 32.5 g/dL (31.0-37.0); MCV 90.8 fL (80.0-100.0); Mean Platelet Volume 6.2; Monocytes # (A) 0.5 k/uL (0-1.0); Monocytes % (A) 8 %; Neutrophils # (A) 3.6 k/uL (1.3-7.7); Neutrophils % (A) 60 %; Platelet Count 338 k/uL (150-450); RBC 3.68 m/uL (3.80-5.40); RDW 12.8 % (11.5-15.5)
[2018-07-08 08:06] LABS: Anion Gap 9 mmol/L; Blood Urea Nitrogen 4 mg/dL (7-17); Calcium 8.6 mg/dL (8.4-10.2); Carbon Dioxide 18 mmol/L (22-30); Chloride 111 mmol/L (98-107); Glucose 104 mg/dL (74-99); Potassium 3.8 mmol/L (3.5-5.1); Sodium 138 mmol/L (137-145)
== END 2018-07-08 10:54 | disposition home health service (06) | DRG 312 ==
LOC: EC 16:00 → 5MS5E 21:00
PROVIDERS: ADMIT Hospitalist; ATTEND Hospitalist
DX: I95.1 Orthostatic hypotension (principal); E87.1 Hypo-osmolality and hyponatremia; T42.1X1A Poisoning by iminostilbenes, accidental (unintentional), initial encounter; Y92.009 Unspecified place in unspecified non-institutional (private) residence as the place of occurrence of the external cause; E03.9 Hypothyroidism, unspecified; F12.90 Cannabis use, unspecified, uncomplicated; F40.240 Claustrophobia; F43.10 Post-traumatic stress disorder, unspecified; F60.9 Personality disorder, unspecified; G40.909 Epilepsy, unspecified, not intractable, without status epilepticus; K21.9 Gastro-esophageal reflux disease without esophagitis; K58.9 Irritable bowel syndrome, unspecified; M79.7 Fibromyalgia; F32.9 Major depressive disorder, single episode, unspecified; G43.909 Migraine, unspecified, not intractable, without status migrainosus; G89.29 Other chronic pain; R73.9 Hyperglycemia, unspecified; F41.9 Anxiety disorder, unspecified; Z96.642 Presence of left artificial hip joint; Z90.710 Acquired absence of both cervix and uterus; Z87.891 Personal history of nicotine dependence; Z86.73 Personal history of transient ischemic attack (TIA), and cerebral infarction without residual deficits; Z87.828 Personal history of other (healed) physical injury and trauma; Z79.899 Other long term (current) drug therapy; Z79.890 Hormone replacement therapy; Z88.6 Allergy status to analgesic agent; Z88.1 Allergy status to other antibiotic agents; Z88.0 Allergy status to penicillin; Z88.2 Allergy status to sulfonamides; Z88.8 Allergy status to other drugs, medicaments and biological substances; Z90.49 Acquired absence of other specified parts of digestive tract; Z98.51 Tubal ligation status; Z82.5 Family history of asthma and other chronic lower respiratory diseases; Z82.49 Family history of ischemic heart disease and other diseases of the circulatory system; Z84.1 Family history of disorders of kidney and ureter; Z84.89 Family history of other specified conditions
CPT/HCPCS: 36415; 70450; 71046; 80048; 80053; 80156; 80306; 80320; 81003; 82533; 82550; 82553; 83605; 83735; 84484; 85025; 85610; 85730; 93005; 93880; 95816; 96360; 96361; 99285

== ENCOUNTER → 2019-12-14 | Outpatient (CLI) | payer OTHER ==
[2019-12-14 17:18] LABS: HCT 43.8 % (34.0-46.0); HGB 14.2 gm/dL (11.4-16.0); MCH 29.8 pg (25.0-35.0); MCHC 32.5 g/dL (31.0-37.0); MCV 91.8 fL (80.0-100.0); Mean Platelet Volume 6.8; Platelet Count 410 k/uL (150-450); RBC 4.78 m/uL (3.80-5.40); RDW 12.4 % (11.5-15.5); Reticulocyte % 1.7 % (0.5-2.0); WBC 11.1 k/uL (3.8-10.6)
[2019-12-15 01:02] LABS: % Iron Saturation 14.72 (12.00-45.00); Iron 39 ug/dL (50-170); Total Iron Binding Capacity 265 ug/dL (228-460)
[2019-12-15 01:13] LABS: Ferritin 45.6 ng/mL (10.0-291.0)
[2019-12-15 01:40] LABS: Folate, Serum >24.0 ng/mL
== END | disposition home or self-care (01) ==
LOC: LABWHC1 16:11
PROVIDERS: ATTEND Psychiatry & Neurology Pain Medicine
DX: D64.9 Anemia, unspecified (principal); R53.83 Other fatigue
CPT/HCPCS: 36415; 82607; 82668; 82728; 82746; 83540; 83550; 84207; 84425; 84439; 84443; 84466; 84481; 84591; 85027; 85045